=== PATIENT | female | born 1945 | race Caucasian/White ===

== ENCOUNTER → 2020-09-30 06:50 | Day surgery (SDC) | payer MEDICARE, SELFPAY ==
[2020-09-30 07:15] VITALS: BP 129/56; PULSE 75; RESP 18; TEMP 36.5; O2SAT 96
[2020-09-30 07:26] VITALS: BP 130/57; PULSE 72; RESP 18; TEMP 36.6; O2SAT 97
[2020-09-30 07:44] VITALS: BP 146/59; PULSE 67; RESP 18; TEMP 36.7
[2020-09-30 07:59] VITALS: BP 142/66; PULSE 68; RESP 18; TEMP 36.6; O2SAT 99
[2020-09-30 08:59] VITALS: BP 165/72; PULSE 68; RESP 18; TEMP 36.7; O2SAT 18
[2020-09-30] MEDS: sodium chloride 0.9% 100 mL Bag IV (09:11)
== END ==
PROVIDERS: PCP Family Medicine; Visit Provider Family Medicine
DX: D50.9 Iron deficiency anemia, unspecified (principal)
CPT/HCPCS: 36415; 36430; 86850; 86900; 86920; P9016

== ENCOUNTER 2022-07-01 09:12 | Inpatient (IN) | payer MEDICARE, SELFPAY ==
[2022-07-01] VITALS (49 sets, daily range): BP systolic 149–210; BP diastolic 54–98; PULSE 75–88; RESP 16–21; TEMP 36.7–36.9; O2SAT 86–100; BMI 19.2; BMI 19.0
--- NOTE | 2022-07-01 10:55 | XRR_ITS ---
PROCEDURE INFORMATION: Exam: XR Left Tibia and Fibula Exam date and time: 07/01/2022 11:12 AM Age: 76 years old Clinical indication: Injury or trauma; Fall; Blunt trauma; Lower leg; Left; Additional info: Leg pain after fall TECHNIQUE: Imaging protocol: Radiologic exam of the Left tibia and fibula. Views: 2 views. COMPARISON: No relevant prior studies available. FINDINGS: Bones/joints: Normal. Soft tissues: Normal. XR/XR tibia fibula LT 2V [id number] IMPRESSION: No acute findings.
--- NOTE | 2022-07-01 10:55 | XRR_ITS ---
PROCEDURE INFORMATION: Exam: XR Left Knee Exam date and time: 07/01/2022 11:12 AM Age: 76 years old Clinical indication: Injury or trauma; Fall; Blunt trauma; Knee; Left; Additional info: Knee pain after fall TECHNIQUE: Imaging protocol: Radiologic exam of the Left knee. Views: 3 views. COMPARISON: No relevant prior studies available. FINDINGS: Bones/joints: Normal. Soft tissues: Normal. XR/XR knee LT 3V* [id number] IMPRESSION: No acute findings.
--- NOTE | 2022-07-01 10:55 | ED_ITS ---
Documented by User: TAYLOR Ernst-Melissa 07/01/22 16:54 HPI - Fall General: Chief Complaint: Fall Stated Complaint: fall, problems with both legs Time Seen by Provider: 07/01/22 09:28 History of Present Illness: Patient is in today for left leg pain. She re ports that on Tuesday night she fell on the ice and her left leg has hurt her ever since then. She does complain of pain in the hip and states that her left leg may be a little bit shorter. She reports of pain from the knee down. She states that when she fell she did not hit her head she did not have a loss of consciousness. She has been walking since the fall but is really in a lot of pain. She does report that she has chronic back pain issues and is on hydrocodone and hydromorphone chronically. She states that her last dose was at 8:00 this morning and she is due for another dose. She reports that her pain is significant when she is being moved around but when she is resting still it is bearable. Associated symptoms-after fall: Denies abdominal pain, chest pain, headache(s) or lightheadedness Review of Systems Const: Denies: fever(s), chills or body aches Card: Denies: chest pain, palpitations, irregular heart rhythm, lightheadedness or syncope Resp: Denies: dyspnea, productive cough or non-productive cough GI: Denies: abdominal pain, nausea or vomiting : Reports: dysuria (Reports some burning with urination recently) and other (History of a chronic UTI from previous kidney surgery.); Denies: flank pain, difficulty voiding, urinary frequency, urinary urgency or urinary hesitancy Musc: Reports: extremity pain and joint pain Neuro: Denies: headache(s), numbness in extremities or weakness in extremities PFSH ED PFSH: Medical History (Updated 07/05/22 @ 00:00 by LAST Paige) Closed subcapital fracture of left femur Dehydration Depression Displaced fracture of neck of left femur Hypertension Hypokalemia Hypomagnesemia Lower back pain Protein calorie malnutrition Surgical History (Updated 07/08/22 @ 11:15 by Navi Butler PA-C) No pertinent past surgical history Status post hip hemiarthroplasty Family History (Updated 07/01/22 @ 18:58 by Jennifer Linn MD) Denies family history of CAD (coronary artery disease) Physical Exam Const: OTHER: Patient is a frail-appearing female. Alert and oriented x3. Neck/C-Spine: COMMON NORMALS: no JVD Resp: COMMON NORMALS: normal respiratory effort, No use of accessory muscles and clear to auscultation bilaterally AUSCULTATION: clear to auscultation bilaterally Cardio: COMMON NORMALS: no JVD, regular rate, regular rhythm, S1 normal heart sound present and S2 normal heart sound present RATE: regular rate RHYTHM: regular rhythm HEART SOUNDS: S1 normal heart sound present and S2 normal heart sound present GI: COMMON NORMALS: Normal to inspection, nondistended, normoactive bowel sounds present, Soft to palpation and non-tender PALPATION: Yes Soft to palpation Extremity: NARRATIVE EXTREMITY EXAM: Tenderness to palpation left lateral and posterior hip. It is difficult to get a full assessment of shortening as the patient is having to position herself for pain with 1 leg up. CSM within normal limits to distal left leg. Course Vital Signs: Vital signs: Vital Signs Temperature 97.6 F 07/04/22 14:03 Pulse Rate 77 07/04/22 14:03 Respiratory Rate 18 07/04/22 14:03 Blood Pressure 155/76 07/04/22 14:03 Pulse Oximetry 97 07/04/22 14:03 Oxygen Delivery Me thod 07/04/22 08:40 MDM - Fall Medical Decision Making Differentials include hip fracture, contusion X-ray hip shows mildly displaced impacted left subcapital femoral neck fracture Spoke with Dr. Felton about patient and he agrees to assume care of the patient. Patient normally takes hydromorphone and hydrocodone at home. She states that she is due for a dose as she has been here and not been able to take her home meds. Hydrocodone 1 tab ordered now. Paged orthopedics?[id number] Fernandes. He advised that he will consult. Admit hospitalist and he will consult for possible surgery tomorrow. Lab Data 07/01/22 12:18 07/01/22 12:18 Radiology Impressions Hip/Pelvis X-Ray 07/01/22 10:55 IMPRESSION: Mildly displaced impacted left subcapital femoral neck fracture. Knee X-Ray 07/01/22 10:55 IMPRESSION: No acute findings. Tibia/Fibula X-Ray 07/01/22 10:55 IMPRESSION: No acute findings. Laboratory Results WBC 10.0 10^3/uL (4.0-10.0) 07/01/22 12:18 RBC 3.41 10^6/uL (4.1-5.3) L 07/01/22 12:18 Hgb 11.2 g/dL (11.5-15.3) L 07/01/22 12:18 Hct 33.5 % (37.0-47.0) L 07/01/22 12:18 MCV 98.2 fl (81-99) 07/01/22 12:18 MCH 32.8 pg (28.0-34.0) 07/01/22 12:18 MCHC 33.4 g/dL (30.0-36.0) 07/01/22 12:18 RDW 12.4 % (12.1-15.1) 07/01/22 12:18 Plt Count 311 10^3/cmm (130-400) 07/01/22 12:18 MPV 9.6 fL (7.4-10.4) 07/01/22 12:18 Neut % (Auto) 74.6 % 07/01/22 12:18 Lymph % (Auto) 10.4 % 07/01/22 12:18 [place] % (Auto) 13.9 % 07/01/22 12:18 Eos % (Auto) 0.6 % 07/01/22 12:18 Baso % (Auto) 0.1 % 07/01/22 12:18 Neut # (Auto) 7.43 10^3/uL (1.8-7.7) 07/01/22 12:18 Lymph # (Auto) 1.0 10^3/uL (0.8-4.8) 07/01/22 12:18 [place] # (Auto) 1.4 10^3/uL (0.2-0.9) H 07/01/22 12:18 Eos # (Auto) 0.1 10^3/uL (0.0-0.8) 07/01/22 12:18 Baso # (Auto) 0.0 10^3/uL (0.0-0.1) 07/01/22 12:18 Nucleated RBC % (auto) 0 % 07/01/22 12:18 Nucleated RBCs # 0.0 /100WBC 07/01/22 12:18 PT 13.90 SECONDS (12.1-14.9) 07/01/22 12:18 INR 1.04 (0.8-1.2) 07/01/22 12:18 APTT 37.6 SECONDS (23.9-36.7) H 07/01/22 12:18 D-Dimer 1.62 ug/mIFEU (0-0.59) H 07/01/22 12:18 Sodium 134 mmol/L (136-145) L 07/01/22 12:18 Potassium 4.0 mmol/L (3.5-5.1) 07/01/22 12:18 Chloride 96 mmol/L (98-107) L 07/01/22 12:18 Carbon Dioxide 24 mmol/L (22-29) 07/01/22 12:18 Anion Gap 18.0 (5-19) 07/01/22 12:18 BUN 10 mg/dL (8-23) 07/01/22 12:18 Creatinine 0.6 mg/dL (0.5-0.9) 07/01/22 12:18 GFR Calculation Not Reportable 07/01/22 12:18 Glucose 101 mg/dL (65-115) 07/01/22 12:18 Calculated Osmolality 277 mOsm/kg (285-295) L 07/01/22 12:18 Calcium 9.6 mg/dL (8.5-10.5) 07/01/22 12:18 Total Bilirubin 0.4 mg/dL (0.15-1.2) 07/01/22 12:18 AST 24 U/L (0-32) 07/01/22 12:18 ALT 18 U/L (0-33) 07/01/22 12:18 Alkaline Phosphatase 110 U/L (35-105) H 07/01/22 12:18 Total Protein 6.5 g/dL (6.6-8.7) L 07/01/22 12:18 Albumin 3.5 g/dL (3.5-5.2) 07/01/22 12:18 Globulin 3.0 g/dL (1.3-4.6) 07/01/22 12:18 Vitamin B12 185 pg/mL (232-1245) L 07/01/22 12:18 Urine Color Yellow (Yellow) 07/01/22 14:00 Urine Appearance Clear (CLEAR) 07/01/22 14:00 Urine pH 6 (5-7) 07/01/22 14:00 Ur Specific Saxis 1.010 (1.005-1.030) 07/01/22 14:00 Urine Protein Neg (Negative) 07/01/22 14:00 Urine Glucose (UA) Norm (Normal) 07/01/22 14:00 Urine Ketones Negative (Negative) 07/01/22 14:00 Urine Blood 2+ (Negative) H 07/01/22 14:00 Urine Nitrate Negative (Negative) 07/01/22 14:00 Urine Bilirubin Neg (Negative) 07/01/22 14:00 Urine Urobilinogen Neg mg/dL (Negative) 07/01/22 14:00 Ur Leukocyte Esterase Negative (Negative) 07/01/22 14:00 Urine RBC 0-4 /hpf (0-2) H 07/01/22 14:00 Urine WBC None /hpf (0-5) 07/01/22 14:00 Ur Squamous Epith Cells None /hpf (0-5) 07/01/22 14:00 Amorphous Sediment Not Reportable 07/01/22 14:00 Urine Bacteria None /hpf (NONE) 07/01/22 14:00 Discharge Plan Discharge Patient Disposition: Admitted As Inpatient Admit Provider: Jennifer Linn Clinical Impression: Closed subcapital fracture of left femur Condition: Stable Discharge Activity: Limit activity as instructed Coding Level of Care Code ED Director Software Quality Assurance for g Fwd Documented by User: Rodrick Felton MD 07/13/22 01:03 HPI - Fall General: Chief Complaint: Fall Stated Complaint: fall, problems with both legs Time Seen by Provider: 07/01/22 09:28 PFSH ED PFSH: Medical History (Updated 07/05/22 @ 00:00 by LAST Paige) Closed subcapital fracture of left femur Dehydration Depression Displaced fracture of neck of left femur Hypertension Hypokalemia Hypomagnesemia Lower back pain Protein calorie malnutrition Surgical History (Updated 07/08/22 @ 11:15 by Navi Butler PA-C) No pertinent past surgical history Status post hip hemiarthroplasty Family History (Updated 07/01/22 @ 18:58 by Jennifer Linn MD) Denies family history of CAD (coronary artery disease) Course Vital Signs: Vital signs: Vital Signs Temperature 97.6 F 07/04/22 14:03 Pulse Rate 77 07/04/22 14:03 Respiratory Rate 18 07/04/22 14:03 Blood Pressure 155/76 07/04/22 14:03 Pulse Oximetry 97 07/04/22 14:03 Oxygen Delivery Me thod 07/04/22 08:40 MDM - Fall Medical Decision Making Differentials include hip fracture, contusion X-ray hip shows mildly displaced impacted left subcapital femoral neck fracture Spoke with Dr. Felton about patient and he agrees to assume care of the patient. Patient normally takes hydromorphone and hydrocodone at home. She states that she is due for a dose as she has been here and not been able to take her home meds. Hydrocodone 1 tab ordered now. Paged orthopedics?[id number] Fernandes. He advised that he will consult. Admit hospitalist and he will consult for possible surgery tomorrow. I discussed this case with MARY Ernst. I reviewed documentation and imaging. Rodrick Felton MD Emergency Medicine Lab Data 07/01/22 12:18 07/01/22 12:18 Radiology Impressions Hip/Pelvis X-Ray 07/01/22 10:55 IMPRESSION: Mildly displaced impacted left subcapital femoral neck fracture. Knee X-Ray 07/01/22 10:55 IMPRESSION: No acute findings. Tibia/Fibula X-Ray 07/01/22 10:55 IMPRESSION: No acute findings. Laboratory Results WBC 10.0 10^3/uL (4.0-10.0) 07/01/22 12:18 RBC 3.41 10^6/uL (4.1-5.3) L 07/01/22 12:18 Hgb 11.2 g/dL (11.5-15.3) L 07/01/22 12:18 Hct 33.5 % (37.0-47.0) L 07/01/22 12:18 MCV 98.2 fl (81-99) 07/01/22 12:18 MCH 32.8 pg (28.0-34.0) 07/01/22 12:18 MCHC 33.4 g/dL (30.0-36.0) 07/01/22 12:18 RDW 12.4 % (12.1-15.1) 07/01/22 12:18 Plt Count 311 10^3/cmm (130-400) 07/01/22 12:18 MPV 9.6 fL (7.4-10.4) 07/01/22 12:18 Neut % (Auto) 74.6 % 07/01/22 12:18 Lymph % (Auto) 10.4 % 07/01/22 12:18 [place] % (Auto) 13.9 % 07/01/22 12:18 Eos % (Auto) 0.6 % 07/01/22 12:18 Baso % (Auto) 0.1 % 07/01/22 12:18 Neut # (Auto) 7.43 10^3/uL (1.8-7.7) 07/01/22 12:18 Lymph # (Auto) 1.0 10^3/uL (0.8-4.8) 07/01/22 12:18 [place] # (Auto) 1.4 10^3/uL (0.2-0.9) H 07/01/22 12:18 Eos # (Auto) 0.1 10^3/uL (0.0-0.8) 07/01/22 12:18 Baso # (Auto) 0.0 10^3/uL (0.0-0.1) 07/01/22 12:18 Nucleated RBC % (auto) 0 % 07/01/22 12:18 Nucleated RBCs # 0.0 /100WBC 07/01/22 12:18 PT 13.90 SECONDS (12.1-14.9) 07/01/22 12:18 INR 1.04 (0.8-1.2) 07/01/22 12:18 APTT 37.6 SECONDS (23.9-36.7) H 07/01/22 12:18 D-Dimer 1.62 ug/mIFEU (0-0.59) H 07/01/22 12:18 Sodium 134 mmol/L (136-145) L 07/01/22 12:18 Potassium 4.0 mmol/L (3.5-5.1) 07/01/22 12:18 Chloride 96 mmol/L (98-107) L 07/01/22 12:18 Carbon Dioxide 24 mmol/L (22-29) 07/01/22 12:18 Anion Gap 18.0 (5-19) 07/01/22 12:18 BUN 10 mg/dL (8-23) 07/01/22 12:18 Creatinine 0.6 mg/dL (0.5-0.9) 07/01/22 12:18 GFR Calculation Not Reportable 07/01/22 12:18 Glucose 101 mg/dL (65-115) 07/01/22 12:18 Calculated Osmolality 277 mOsm/kg (285-295) L 07/01/22 12:18 Calcium 9.6 mg/dL (8.5-10.5) 07/01/22 12:18 Total Bilirubin 0.4 mg/dL (0.15-1.2) 07/01/22 12:18 AST 24 U/L (0-32) 07/01/22 12:18 ALT 18 U/L (0-33) 07/01/22 12:18 Alkaline Phosphatase 110 U/L (35-105) H 07/01/22 12:18 Total Protein 6.5 g/dL (6.6-8.7) L 07/01/22 12:18 Albumin 3.5 g/dL (3.5-5.2) 07/01/22 12:18 Globulin 3.0 g/dL (1.3-4.6) 07/01/22 12:18 Vitamin B12 185 pg/mL (232-1245) L 07/01/22 12:18 Urine Color Yellow (Yellow) 07/01/22 14:00 Urine Appearance Clear (CLEAR) 07/01/22 14:00 Urine pH 6 (5-7) 07/01/22 14:00 Ur Specific Saxis 1.010 (1.005-1.030) 07/01/22 14:00 Urine Protein Neg (Negative) 07/01/22 14:00 Urine Glucose (UA) Norm (Normal) 07/01/22 14:00 Urine Ketones Negative (Negative) 07/01/22 14:00 Urine Blood 2+ (Negative) H 07/01/22 14:00 Urine Nitrate Negative (Negative) 07/01/22 14:00 Urine Bilirubin Neg (Negative) 07/01/22 14:00 Urine Urobilinogen Neg mg/dL (Negative) 07/01/22 14:00 Ur Leukocyte Esterase Negative (Negative) 07/01/22 14:00 Urine RBC 0-4 /hpf (0-2) H 07/01/22 14:00 Urine WBC None /hpf (0-5) 07/01/22 14:00 Ur Squamous Epith Cells None /hpf (0-5) 07/01/22 14:00 Amorphous Sediment Not Reportable 07/01/22 14:00 Urine Bacteria None /hpf (NONE) 07/01/22 14:00 Discharge Plan Discharge Patient Disposition: Admitted As Inpatient Admit Provider: Jennifer Linn Clinical Impression: Closed subcapital fracture of left femur Condition: Stable Discharge Activity: Limit activity as instructed Coding Level of Care Code ED Director Software Quality Assurance for Pablo Aviles
--- NOTE | 2022-07-01 10:55 | XRR_ITS ---
PROCEDURE INFORMATION: Exam: XR Left Hip Exam date and time: 07/01/2022 11:12 AM Age: 76 years old Clinical indication: Injury or trauma; Fall; Blunt trauma (contusions or hematomas); Left; Hip; Additional info: Leg pain after fall TECHNIQUE: Imaging protocol: Radiologic exam of the Left hip. Views: 2 or 3 views hip with pelvis when performed. COMPARISON: No relevant prior studies available. FINDINGS: Bones/joints: Mildly displaced subcapital femoral neck fracture on the left. Mild varus impaction at the fracture site. Mild varus angulation. No visible pelvic fracture. The right proximal femur is unremarkable. Soft tissues: Unremarkable. Other findings: Metallic density structures project over the lower abdomen, external to the patient. XR/XR hip LT 2-3V wo/w pel* [id number] IMPRESSION: Mildly displaced impacted left subcapital femoral neck fracture.
[2022-07-01 12:29] LABS: Basophils % 0.1 %; Eosinophils # 0.1 10^3/uL (0.0-0.8); Eosinophils % 0.6 %; Hematocrit 33.5 % (37.0-47.0); Hemoglobin 11.2 g/dL (11.5-15.3); Lymphocytes % 10.4 %; Mean Corpuscular HGB Conc 33.4 g/dL (30.0-36.0); Mean Corpuscular Hemoglobin 32.8 pg (28.0-34.0); Mean Corpuscular Volume 98.2 fl (81-99); Mean Platelet Volume 9.6 fL (7.4-10.4); Monocytes # 1.4 10^3/uL (0.2-0.9); Monocytes % 13.9 %; Neutrophils # 7.43 10^3/uL (1.8-7.7); Neutrophils % 74.6 %; Nucleated Red Blood Cells % 0 %; Platelet Count 311 10^3/cmm (130-400); Red Blood Count 3.41 10^6/uL (4.1-5.3); Red Cell Distribution Width 12.4 % (12.1-15.1)
[2022-07-01 12:41] LABS: INR 1.04 (0.8-1.2)
[2022-07-01 12:42] LABS: Partial Thromboplastin Time 37.6 SECONDS (23.9-36.7)
[2022-07-01 12:47] LABS: Alanine Aminotransferase 18 U/L (0-33); Albumin Level 3.5 g/dL (3.5-5.2); Alkaline Phosphatase 110 U/L (35-105); Aspartate Amino Transferase 24 U/L (0-32); Blood Urea Nitrogen 10 mg/dL (8-23); Calcium 9.6 mg/dL (8.5-10.5); Carbon Dioxide 24 mmol/L (22-29); Chloride 96 mmol/L (98-107); Glucose 101 mg/dL (65-115); Osmolality Calculated 277 mOsm/kg (285-295); Sodium 134 mmol/L (136-145); Total Bilirubin 0.4 mg/dL (0.15-1.2); Total Protein 6.5 g/dL (6.6-8.7)
[2022-07-01] MEDS: HYDROcodone-acetaminophen 10-325 mg Tablet 1 TAB PO ×3 (12:54→22:13)
--- NOTE | 2022-07-01 14:09 | PC.NURSE ---
Report given to ronit LOMAX
[2022-07-01 14:46] LABS: Urine Appearance Clear (CLEAR); Urine Color Yellow (Yellow); pH Urine 6 (5-7)
[2022-07-01 14:47] LABS: Add Urine Culture? No; Add Urine Microscopic? YES; Bilirubin Urine Neg (Negative); Blood Urine 2+ (Negative); Glucose Urine UA Norm (Normal); Ketones Urine Negative (Negative); Leukocyte Esterase Urine Negative (Negative); Nitrate Urine Negative (Negative); Protein Urine Neg (Negative); RBC Urine 0-4 /hpf (0-2); Urobilinogen Urine Neg (Negative)
--- NOTE | 2022-07-01 14:47 | PM.HP ---
Providers/Chief Complaint Admitting Physician: Jennifer Linn MD Primary Care Provider: Abdiel Melendez MD Chief Complaint: fall, problems with both legs History of Present Illness Betina Flores is a 76 year old female who fell on last Tuesday night presented with chief complaint of worsening of left-sided hip pain. Patient is stating that she slipped on the black ice on Tuesday last week, she has been tolerating her pain at home, today she present to the hospital when it got worse and out of control, she has not noticed any syncopal event, chest pain, nausea, vomiting or diarrhea. She is denying history of coronary disease. She lives with her family, independent for daily activities. Orthopedics consulted in the ER for left-sided femoral neck fracture she has been diagnosed with low vitamin B12 Review of Systems Const: Denies: fever(s) Eyes: Denies: change in vision ENMT: Denies: throat pain Card: Denies: chest pain Resp: Denies: dyspnea GI: Denies: abdominal pain : Denies: flank pain Musc: Reports: neck pain, back pain and extremity pain Skin/Breast: Denies: rash Neuro: Denies: headache(s) Psych: Reports: anxiety Endo: Denies: polyuria Bhanu/Lymph: Denies: easy bruising All/Imm: Denies: urticaria Medications/Allergies Home Medications Medication Instructions Recorded Confirmed Last Taken Type atorvastatin 10 mg tablet 10 mg PO BEDTIME 09/30/20 07/01/22 06/30/22 History brimonidine 0.2 % eye drops 1 drp ophthalmic (eye) BID 09/30/20 07/01/22 09/29/20 History bupropion HCl 300 mg 24 hr tablet, 300 mg PO BID 09/30/20 07/01/22 06/30/22 History extended release carisoprodol 350 mg tablet 350 mg PO Q6H 09/30/20 07/01/22 07/01/22 History fluoxetine 40 mg capsule 40 mg PO QAM 09/30/20 07/01/22 06/30/22 History hydrocodone 10 mg-acetaminophen 1 - 2 tab PO Q4H PRN Pain 09/30/20 07/01/22 07/01/22 08:00 History 325 mg tablet 2 tabs hydromorphone 2 mg tablet 1 - 2 mg PO Q4H PRN Pain 09/30/20 07/01/22 09/29/20 History acetaminophen 650 mg 650 mg PO BID PRN Pain 07/01/22 07/01/22 Unknown History tablet,extended release diphenhydramine HCl 50 mg capsule 100 mg PO BEDTIME 07/01/22 07/01/22 Unknown History ([employer] SleepGels) gabapentin 100 mg capsule 100 mg PO Q6H 07/01/22 07/01/22 06/30/22 History Allergies Allergy/AdvReac Type Severity Reaction Status Date / Time No Known Allergies Allergy Verified 07/01/22 11:59 PFSH Acute PFSH: Medical History (Updated 07/01/22 @ 18:58 by Jennifer Linn MD) Depression Lower back pain Surgical History (Updated 07/01/22 @ 18:58 by Jennifer Linn MD) No pertinent past surgical history Family History (Updated 07/01/22 @ 18:58 by Jennifer Linn MD) Denies family history of CAD (coronary artery disease) Vitals/I&O/Wt Last Vital Signs Temp 98.1 F 07/01/22 09:28 Pulse 86 07/01/22 09:28 Resp 18 07/01/22 09:28 BP 204/54 07/01/22 14:05 Pulse Ox 100 07/01/22 14:05 O2 Del Method 07/01/22 09:28 Weight last 48 hrs Weight 47.627 kg Physical Exam Narrative: Frail female Currently in distress because of pain S1, S2 Sinus tachycardia Hypertensive due to pain Abdomen soft Nonfocal neuro exam Doing well on room air Appears stated age Dehydrated Urinary Catheter Management: Mcmullen: Cath Placed During This Visit: yes Urinary Catheter Date of Insertion: 07/01/22 Urinary Catheter Time of Insertion: 14:01 Data 07/01/22 12:18 07/01/22 12:18 A&P Assessment and plan (1) Closed subcapital fracture of left femur: (2) Displaced fracture of neck of left femur: (3) No pertinent past surgical history: Plan Left hip fracture Femoral neck fracture Concern for avascular necrosis Surgery tomorrow Orthopedics consulted We will keep her n.p.o. after midnight Start IV fluids Place Mcmullen catheter I will give her Dilaudid for analgesia Continue gabapentin as well Hypertension is most likely related to uncontrolled pain N.p.o. after midnight Full code DVT prophylaxis: SCDs She will need rehab after surgery Attestations Medical Necessity Statement*: Anticipating more than 2 midnight Coding Level of Care Code 99494 Diagnoses Closed subcapital fracture of left femur S72.012A Displaced fracture of neck of left femur S72.002A No pertinent past surgical history Z78.9
[2022-07-01 15:06] LABS: D Dimer 1.62 ug/mIFEU (0-0.59)
[2022-07-01] MEDS: acetaminophen 500 mg Tablet PO (15:37)
[2022-07-01] MEDS: sodium chloride 0.9% 1,000 ML 75 ML IV (15:44)
[2022-07-01 16:13] LABS: Vitamin B12 185 pg/mL (232-1245)
--- NOTE | 2022-07-01 16:51 | PM.CONSULT ---
Providers/Reason For Consult Consulting Physician/Specialty*: Orthopedics Reason for Consult*: Left hip pain Attending Physician: Jennifer Linn MD Primary Care Provider: Abdiel Melendez MD History of Present Illness History of Present Illness Betina Flores is a 76 year old female who was evaluated in the emergency room on 07/01/2022 with family present. Patient was complaining of left hip pain following a fall after she slipped on the ice. Pain has been localized to the left hip is been constant sharp stabbing in nature and the movement has made it much worse. She denies any neck or back pain she describes the pain as 8 out of 10 on the pain scale and localized to the left hip. There is obvious deformity about the left lower extremity. She denies any neck or back pain. Denies any loss of consciousness in the fall. Any attempts to move the left leg is made it much worse. Review of Systems Const: Denies: fever(s), chills or body aches Card: Denies: chest pain, palpitations, irregular heart rhythm, lightheadedness or syncope Resp: Denies: dyspnea, productive cough or non-productive cough GI: Denies: abdominal pain, nausea or vomiting : Reports: dysuria (Reports some burning with urination recently) and other (History of a chronic UTI from previous kidney surgery.); Denies: flank pain, difficulty voiding, urinary frequency, urinary urgency or urinary hesitancy Musc: Reports: extremity pain and joint pain Neuro: Denies: headache(s), numbness in extremities or weakness in extremities Medications/Allergies Home Medications Medication Instructions Recorded Confirmed Last Taken Type atorvastatin 10 mg tablet 10 mg PO BEDTIME 09/30/20 07/01/22 06/30/22 History brimonidine 0.2 % eye drops 1 drp ophthalmic (eye) BID 09/30/20 07/01/22 09/29/20 History bupropion HCl 300 mg 24 hr tablet, 300 mg PO BID 09/30/20 07/01/22 06/30/22 History extended release carisoprodol 350 mg tablet 350 mg PO Q6H 09/30/20 07/01/22 07/01/22 History fluoxetine 40 mg capsule 40 mg PO QAM 09/30/20 07/01/22 06/30/22 History hydrocodone 10 mg-acetaminophen 1 - 2 tab PO Q4H PRN Pain 09/30/20 07/01/22 07/01/22 08:00 History 325 mg tablet 2 tabs hydromorphone 2 mg tablet 1 - 2 mg PO Q4H PRN Pain 09/30/20 07/01/22 09/29/20 History acetaminophen 650 mg 650 mg PO BID PRN Pain 07/01/22 07/01/22 Unknown History tablet,extended release diphenhydramine HCl 50 mg capsule 100 mg PO BEDTIME 07/01/22 07/01/22 Unknown History ([employer] SleepGels) gabapentin 100 mg capsule 100 mg PO Q6H 07/01/22 07/01/22 06/30/22 History Allergies Allergy/AdvReac Type Severity Reaction Status Date / Time No Known Allergies Allergy Verified 07/01/22 11:59 Current Medications Generic Name Dose Route Start Last Admin Trade Name Freq PRN Reason Stop Dose Admin Acetaminophen 500 mg 07/01/22 15:28 07/01/22 15:37 Acetaminophen 500 Mg Tablet PO 500 mg Q4H PRN Administration fever Sodium Chloride 1,000 mls @ 75 mls/hr 07/01/22 15:28 07/01/22 15:44 Sodium Chloride 0.9% IV 75 mls/hr .[id number] HENNY Administration Vitals/I&O/Wt Last Vital Signs Temp 98.1 F 07/01/22 09:28 Pulse 77 07/01/22 15:35 Resp 18 07/01/22 15:35 BP 161/87 07/01/22 15:13 Pulse Ox 97 07/01/22 15:35 O2 Del Method 07/01/22 15:44 Weight last 48 hrs Weight 104 lb Weight 104 lb Weight 105 lb Physical Exam Narrative: She is alert and orient x3 mild acute distress. Good general appearance. Palpable pain over the left hip with obvious shortening and external rotation of the left lower extremity. She has positive logroll on the left. She wiggles all digits with good sensation light touch down both lower extremities dorsalis pedis posterior tibial pulses are palpable. No palpable pain in the knee or ankle region bilaterally. Negative logroll on the right. She has no palpable pain in the lumbar thoracic or cervical spine full range of motion of both upper extremities hands warm good cap refill normal sensation light touch. HENMT: COMMON NORMALS: normocephalic HEAD & SCALP: normocephalic Resp: COMMON NORMALS: normal respiratory effort Cardio: COMMON NORMALS: regular rate and regular rhythm RATE: regular rate RHYTHM: regular rhythm GI: COMMON NORMALS: Soft to palpation and non-tender PALPATION: Yes Soft to palpation : COMMON NORMALS: Yes no CVA tenderness BLADDER/KIDNEY EXAM: Yes no CVA tenderness Back/Pelvis: COMMON NORMALS: no CVA tenderness Psych: COMMON NORMALS: mental status grossly normal and cooperative Urinary Catheter Management: Mcmullen: Cath Placed During This Visit: yes Urinary Catheter Date of Insertion: 07/01/22 Urinary Catheter Time of Insertion: 14:01 Data 07/01/22 12:18 07/01/22 12:18 A&P Assessment and plan (1) Displaced fracture of neck of left femur: Discussed with the patient and her family the treatment options and involved a left hip hemiarthroplasty. She understands the procedure she wished to proceed we will wait to medical clearance we will keep her n.p.o. after midnight. Discussed this with Dr. Moffett agrees above-stated plan. More than 50% of the time spent with the patient today involved coordination of care, counseling and discussion of conservative versus surgical treatment options. Total amount of time spent with the patient was 30 minutes. Coding Level of Care Code Acute Code for [facility] Fwd Diagnoses Displaced fracture of neck of left femur S72.002A Time Spent (min) 30
[2022-07-01] MEDS: gabapentin 100 mg Capsule PO (17:56)
[2022-07-01] MEDS: brimonidine 0.2% Op Soln 5 mL Btl 1 DROP EYE-BOTH (18:01)
[2022-07-01] MEDS: amlodipine 10 mg Tablet PO (19:31)
[2022-07-01] MEDS: HYDROmorphone 1 mg/mL INJ 1 mL 0.4 MG IVP (20:51)
--- NOTE | 2022-07-01 22:21 | PC.NURSE ---
Report called to [facility] on med-surg floor.
--- NOTE | 2022-07-01 22:39 | PC.NURSE ---
Transferred to room 261 in bed.
--- NOTE | 2022-07-01 23:56 | PC.NURSE ---
TRANSFER NOTE Pt received to room 261 from CSU via bed at 2250. Is alert and oriented. Says she fell a week ago but just came to the hospital yesterday because pain became too much to take. Has fx of L femur and is scheduled for surgery in the am. Denies pain at present and says received pain med not long ago. IV fluids infusing without difficulty. Mcmullen catheter in place. VS check was done and call light in pts reach. 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
[2022-07-02] VITALS (17 sets, daily range): BP systolic 95–192; BP diastolic 43–93; PULSE 62–89; RESP 9–21; TEMP 36.1–36.8; O2SAT 92–99
[2022-07-02] MEDS: HYDROmorphone 1 mg/mL INJ 1 mL 0.4 MG IVP ×4 (01:06→23:25)
[2022-07-02] MEDS: HYDROcodone-acetaminophen 10-325 mg Tablet 1 TAB PO ×3 (02:33→21:55)
[2022-07-02] MEDS: sodium chloride 0.9% 1,000 ML 75 ML IV ×2 (04:41→21:56)
[2022-07-02] MEDS: fluoxetine 20 mg Capsule 40 MG PO (05:14)
[2022-07-02 07:11] LABS: Basophils % 0.4 %; Eosinophils # 0.1 10^3/uL (0.0-0.8); Hematocrit 36.4 % (37.0-47.0); Hemoglobin 12.1 g/dL (11.5-15.3); Lymphocytes # 1.2 10^3/uL (0.8-4.8); Lymphocytes % 11.7 %; Mean Corpuscular HGB Conc 33.2 g/dL (30.0-36.0); Mean Corpuscular Hemoglobin 32.6 pg (28.0-34.0); Mean Corpuscular Volume 98.1 fl (81-99); Mean Platelet Volume 9.8 fL (7.4-10.4); Monocytes # 1.3 10^3/uL (0.2-0.9); Monocytes % 12.6 %; Neutrophils # 7.38 10^3/uL (1.8-7.7); Neutrophils % 73.7 %; Nucleated Red Blood Cells % 0 %; Platelet Count 356 10^3/cmm (130-400); Red Blood Count 3.71 10^6/uL (4.1-5.3); Red Cell Distribution Width 12.2 % (12.1-15.1)
[2022-07-02 07:29] LABS: Anion Gap 18.5 (5-19); Blood Urea Nitrogen 8 mg/dL (8-23); Calcium 8.7 mg/dL (8.5-10.5); Carbon Dioxide 22 mmol/L (22-29); Chloride 94 mmol/L (98-107); Glucose 89 mg/dL (65-115); Magnesium 1.6 mg/dL (1.7-2.3); Osmolality Calculated 270 mOsm/kg (285-295); Phosphorus 3.2 mg/dL (2.5-4.5); Potassium 3.5 mmol/L (3.5-5.1); Sodium 131 mmol/L (136-145)
[2022-07-02] MEDS: amlodipine 10 mg Tablet PO (08:51)
[2022-07-02] MEDS: gabapentin 100 mg Capsule PO ×2 (08:51→17:28)
--- NOTE | 2022-07-02 10:07 | PC.NURSE ---
1010 patient taked to preop holding patient in stable condition
[2022-07-02] MEDS: sodium chloride 0.9% 1,000 ML 30 ML IV (10:28)
--- NOTE | 2022-07-02 10:32 | W.PM.OPSUD ---
Surgery/Procedure H&P Update DATE OF PROCEDURE: July 02, 2022 DATE H&P PERFORMED: 07/02/22 H&P UPDATE INFORMATION: I have reviewed H&P completed within last 30 days, I have examined patient prior to procedure and No changes to prior documentation PREOP DIAGNOSIS: Displaced left femoral neck fracture PLANNED PROCEDURE: Operation Date: 07/02/22 11:45 Proposed Procedures p Hemiarthroplasty Hip(Left) - Demetrius Fernandes DO
--- NOTE | 2022-07-02 10:39 | PM.PN ---
Subjective Subjective: Patient is going for surgery around 11:30 AM as per the staff and who is at the bedside Patient is still complaining of pain Agreeable to go to rehab after surgery Patient is full code Goals of care discussed with the patient in front of her D-dimer is 1.6 She is on room air Not tachycardic Hemoglobin 12 Potassium 3.5 sodium 131 Magnesium 1.6 Vitals/I&O/Wt Last Vital Signs Temp 97.0 F L 07/02/22 10:18 Pulse 80 07/02/22 10:18 Resp 17 07/02/22 10:18 BP 159/75 07/02/22 10:18 Pulse Ox 95 07/02/22 10:18 O2 Del Method 07/02/22 10:18 07/01/22 07/02/22 07/02/22 22:59 06:59 14:59 Intake Total 120 / 120 1031.25 / 1151.25 60 / 60 Output Total 400 / 400 200 / 200 Balance 120 / 120 631.25 / 751.25 -140 / -140 Weight last 48 hrs Weight 47.174 kg Weight 47.174 kg Weight 47.627 kg Physical Exam Narrative: Patient is in pain Dehydrated Muscle mass loss S1, S2 Currently on room air at the bedside Nonfocal neuro exam No audible stridor or wheezing No signs of vascular compromise of lower extremities Skin is dehydrated and dry Urinary Catheter Management: Mcmullen: Cath Placed During This Visit: yes Reason for Continuing Indwelling Catheter: Required Immobilization for Trauma or Surgery or Anesthesia Urinary Catheter Date of Insertion: 07/01/22 Urinary Catheter Time of Insertion: 14:01 Data 07/02/22 06:12 07/02/22 06:12 A&P Assessment and plan (1) Displaced fracture of neck of left femur: (2) Closed subcapital fracture of left femur: (3) Dehydration: (4) Hypertension: (5) Hypomagnesemia: (6) Hypokalemia: (7) Protein calorie malnutrition: Plan Femoral neck fracture Patient is going for surgery today Complaining of leg pain at this point She has been given opioids We will follow-up with orthopedic Hypertension like related to uncontrolled pain Added amlodipine Reevaluate after her surgery Dehydration, continue IV fluid Low potassium and sodium noted Hypomagnesemia: Magnesium repleted Patient is frail most likely will need rehab after her surgery She is full code N.p.o. for the surgery Follow-up with blood work tomorrow morning Start DVT prophylaxis 4 hours after the procedure Mild protein calorie malnourishment, will ask dietitian to see her after surgery BMI 19 Attestations Medical Necessity Statement*: Surgery today Coding Level of Care Code 30352 Diagnoses Displaced fracture of neck of left femur S72.002A Closed subcapital fracture of left femur S72.012A Dehydration E86.0 Hypertension I10 Hypomagnesemia E83.42 Hypokalemia E87.6 Protein calorie malnutrition E46
--- NOTE | 2022-07-02 10:45 | P.ANESASSM_ITS ---
Pre-Anesthetic Assessment Height/Weight: Height 1.57 m Weight 47.174 kg Temp Pulse Resp BP Pulse Ox O2 Del Method 97.0 F L 80 17 159/75 95 07/02/22 10:18 07/02/22 10:18 07/02/22 10:18 07/02/22 10:18 07/02/22 10:18 07/02/22 10:18 Preop Diagnosis: Displaced left femoral neck fracture Operation Date: 07/02/22 11:45 Proposed Procedures p Hemiarthroplasty Hip(Left) - Demetrius Fernandes, DO Familial anesthetic complications: None Was Beta Kasie taken within 24 hours: N/A Was Clonidine taken within 24 hours: N/A Last intake: Intake Last Liquid Date 07/01/22 Last Liquid Time 23:45 Last Solid Date 07/01/22 Last Solid Time 18:00 Social Tobacco and No alcohol Exam alert, oriented x 3, clear to auscultation bilaterally and regular rate & rhythm legallly blind, NENANA Airway Mallampati: Class II Dentition: other (None) CV/HEM Hypertension GI Peptic Ulcer Disease unknown bowel surgery Neuropsych Transient Ischemic Attack Anesthetic Plan ASA status: 3 Anesthesia: Regional (specify below) (spinal) Risk of > 500 ml blood loss (7ml/kg in children): No Medications/Allergies Home Medications Medication Instructions Recorded Confirmed Last Taken Type atorvastatin 10 mg tablet 10 mg PO BEDTIME 09/30/20 07/01/22 06/30/22 History brimonidine 0.2 % eye drops 1 drp ophthalmic (eye) BID 09/30/20 07/01/22 09/29/20 History bupropion HCl 300 mg 24 hr tablet, 300 mg PO BID 09/30/20 07/01/22 06/30/22 History extended release carisoprodol 350 mg tablet 350 mg PO Q6H 09/30/20 07/01/22 07/01/22 History fluoxetine 40 mg capsule 40 mg PO QAM 09/30/20 07/01/22 06/30/22 History hydrocodone 10 mg-acetaminophen 1 - 2 tab PO Q4H PRN Pain 09/30/20 07/01/22 07/01/22 08:00 History 325 mg tablet 2 tabs hydromorphone 2 mg tablet 1 - 2 mg PO Q4H PRN Pain 09/30/20 07/01/22 09/29/20 History acetaminophen 650 mg 650 mg PO BID PRN Pain 07/01/22 07/01/22 Unknown History tablet,extended release diphenhydramine HCl 50 mg capsule 100 mg PO BEDTIME 07/01/22 07/01/22 Unknown History ([employer]) gabapentin 100 mg capsule 100 mg PO Q6H 07/01/22 07/01/22 06/30/22 History Allergies Allergy/AdvReac Type Severity Reaction Status Date / Time No Known Allergies Allergy Verified 07/01/22 11:59 Current Medications Generic Name Dose Route Start Last Admin Trade Name Freq PRN Reason Stop Dose Admin Acetaminophen 500 mg 07/01/22 15:28 07/01/22 15:37 Acetaminophen 500 Mg Tablet PO 500 mg Q4H PRN Administration fever Hydrocodone Bitart/Acetaminophen 1 tab 07/01/22 15:28 07/02/22 08:50 Hydrocodone-Acetaminophen 10-325 Mg Tablet PO 1 tab Q4H PRN Administration Pain Amlodipine Besylate 10 mg 07/01/22 18:25 07/02/22 08:51 Amlodipine 10 Mg Tablet PO 10 mg DAILY HENNY Administration Brimonidine Tartrate 1 drop 07/01/22 18:00 07/01/22 18:01 Brimonidine 0.2% Op Soln 5 Ml Btl EYE-BOTH 1 drop BID HENNY Administration Fluoxetine HCl 40 mg 07/02/22 06:00 07/02/22 05:14 Fluoxetine 20 Mg Capsule PO 40 mg QAM HENNY Administration Gabapentin 100 mg 07/01/22 18:00 07/02/22 08:51 Gabapentin 100 Mg Capsule PO 100 mg BID HENNY Administration Hydromorphone HCl 0.4 mg 07/01/22 18:58 07/02/22 09:57 Hydromorphone 1 Mg/Ml Inj 1 Ml IVP 0.4 mg Q4H PRN Administration pain Sodium Chloride 1,000 mls @ 75 mls/hr 07/01/22 15:28 07/02/22 04:41 Sodium Chloride 0.9% IV 75 mls/hr .[id number] HENNY Administration Sodium Chloride 1,000 mls @ 30 mls/hr 07/02/22 10:15 07/02/22 10:28 Sodium Chloride 0.9% IV 07/03/22 10:14 30 mls/hr .Q24H HENNY Administration PFSH Anesthesia Medical History (Updated 07/02/22 @ 10:44 by Jennifer Linn MD) Depression Lower back pain Surgical History (Updated 07/01/22 @ 18:58 by Jennifer Linn MD) No pertinent past surgical history Family History (Updated 07/01/22 @ 18:58 by Jennifer Linn MD) Denies family history of CAD (coronary artery disease) Data Anesthesia 07/02/22 06:12 07/02/22 06:12 Short CBC 07/01/22 07/02/22 Range/Units 12:18 06:12 WBC 10.0 10.0 (4.0-10.0) 10^3/uL Hgb 11.2 L 12.1 (11.5-15.3) g/dL Hct 33.5 L 36.4 L (37.0-47.0) % MCV 98.2 98.1 (81-99) fl Plt Count 311 356 (130-400) 10^3/cmm Neut % (Auto) 74.6 73.7 % Neut # (Auto) 7.43 7.38 (1.8-7.7) 10^3/uL BMP 07/01/22 07/02/22 12:18 06:12 Sodium 134 L 131 L Potassium 4.0 3.5 Chloride 96 L 94 L Carbon Dioxide 24 22 BUN 10 8 Creatinine 0.6 0.5 Glucose 101 89 Calcium 9.6 8.7 Liver Function 07/01/22 Range/Units 12:18 Total Bilirubin 0.4 (0.15-1.2) mg/dL AST 24 (0-32) U/L ALT 18 (0-33) U/L Alkaline Phosphatase 110 H (35-105) U/L Albumin 3.5 (3.5-5.2) g/dL Urine 07/01/22 Range/Units 14:00 Urine Color Yellow (Yellow) Urine Appearance Clear (CLEAR) Urine pH 6 (5-7) Ur Specific [place] 1.010 (1.005-1.030) Urine Protein Neg (Negative) Urine Glucose (UA) Norm (Normal) Urine Ketones Negative (Negative) Urine Nitrate Negative (Negative) Urine Bilirubin Neg (Negative) Ur Leukocyte Esterase Negative (Negative) Urine RBC 0-4 H (0-2) /hpf Urine WBC None (0-5) /hpf Coags 07/01/22 07/01/22 12:18 12:18 PT 13.90 INR 1.04 APTT 37.6 H D-Dimer 1.62 H Cardiac Studies: No Data to Display
--- NOTE | 2022-07-02 11:02 | ANES.PROC ---
Anesthesia Procedures Procedure/Date: 07/02/22 Nerve Block ^: Nerve Block 1: Main Anesthesia: general anesthesia Time Out Performed: Yes Consent: requested by attending/covering physician, from patient, from other, risks and benefits reviewed and patient agrees to proceed Nerve block location: axillary (R) Anesthesia monitors applied: pulse oximetry, EKG, BP cuff and oxygen Nerve block position: supine Anesthetic Used: ropivicaine 0.5% (30 ml) and with decadron (4 mg) Ultrasound used to: recognize landmarks and visualize and ID brachial plexus Nerve Stimulator Used?: No Interscalene/Femoral BLK: 2 stimuplex 22 g needle used for position and inplane approach, visualize local anesthetic spread and no vascular puncture identified Injection: neg aspiration of heme Patient Tolerated Procedure: well and no complications Complications: none
--- NOTE | 2022-07-02 11:17 | PC.CHAP ---
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 [] Patient/Family/Request visit [] Outpatient visit [] Follow-up visit [] Physician referral [] Code/Alert [x] Routine visit [] Staff referral [] Actively dying [] Patient sleeping [x] Family support [] [] Out of room [] Palliative care [] [] Receiving care in room [] Pre-surgical visit [] Trauma [] Long length of stay [] ICU visit [] Other: Relational/Emotional Strength [x] Patient feels connected with others/family/visitors/staff [] Distress [] Loneliness/isolation [] Abandonment Spirituality of Patient [x] Person of Rosalba [] Attends Jewish of their Rosalba [x] Believes in Prayer [] Reads Bible or Anabaptism materials [] There are Spiritual issues to be addressed Soft Metals Hand Engraver Interventions [x] Prayer [] Active listening [] Non-anxious presence [] Spiritual/emotional support [] Crisis/trauma care [] Spiritual counseling [] Bereavement support [] Provided bereavement packet [x] Provided Bible/devotional materials [] Provided toy/stuffed animal, coloring book to patient or family member [] Provided Communion [] Anointing/[place] [] Salvation [x] Completed spiritual assessment [] Other: Impact on Illness or Injury [] Angry [] Fearful [] Anxious [] Often cries [] Exhaustion [] Unable to work [] Unable to attend rastafari [] Unable to walk/stand [] Unable to read [] Unable to drive [] Unable to eat/drink [] Unable to sleep [] Unable to be with family [] Patient intubated [] Other: Summary Time spent with patient 10min
[2022-07-02] MEDS: ceFAZolin 2,000 MG in sodium chloride 0.9% (plus) 50 ML 100 MG IV (11:28)
--- NOTE | 2022-07-02 12:32 | P.OP_ITS ---
Operative Report Date of procedure: July 02, 2022 Pre-op diagnosis: Preop Diagnosis Displaced left femoral neck fracture Post-op diagnosis: same Procedure done: 1. Left hip hemiarthroplasty Surgeon: Demetrius Fernandes Fertilizer Mixer: Navi Butler Fertilizer Mixer: The surgical pathologist, Navi Butler, PAC was needed for his expertise with fracture care. He was important and necessary throughout the procedure to com plete in a safe and timely manner. He assisted with patient positioning prepping and draping tissue retraction suctioning of the operative field protection of the critical structures and tissue closure Estimated blood loss (mL): 25 Procedure: 1. Left hip hemiarthroplasty patient brought to the operative suite after undergoing anesthesia was placed in lateral keep's position the left side up. Patient was then prepped and draped. All areas impingement were well-padded. Skin skin was made on the lateral side of the hip on the left side. The IT band was split modified Cabrera approach was used abductors were partially taken anteriorly capsule was taken down anteriorly the femoral neck was identified from neck cut was cut approximately 1 fingerbreadth above the lesser trochanter. The femoral head was then removed. It is measured to be 43-1/2. Next tension was brought to prepping the femur. The ammonia box tender was used to help lateralize the opening and then the canal finder was used followed by lateralizer. The broaches were then used up to a size 6. It is a Cielo hip. A size 6 Magnolia stem was inserted. The -4 neck length and a 43 mm head. The hip was then reduced and was stable in all positions. Wounds were irrigated and the wound was closed in a layered fashion with 0 Vicryl FiberWire was used to close the capsule and 0 Vicryl for the IT band and splint skin was closed with 2-0 Vicryl and marion. Sterile dressings applied patient was transferred to the PACU in stable condition.
--- NOTE | 2022-07-02 13:17 | PC.NURSE ---
1315 report recieved from PACU
--- NOTE | 2022-07-02 13:27 | PC.NUTR ---
When medically appropriate, recommend consideration of Jevity 1.2 or similar product beginning with 10 mls/hr and increasing 10 mls Q8H as tolerated until a goal rate of 40 mls/hr is reached with fresh water flushes 80 mls Q4H or per MD discretion. Details in RD assessment.
--- NOTE | 2022-07-02 13:28 | PC.NURSE ---
1320 patient returned to room 261 from PACU dressing to left hip clean dry and intact, patient drowsy, oriented x3. offering no complaints of pain at this time
[2022-07-02] MEDS: magnesium sulfate premix 2 GM/50 ML PIGGYBACK IV (14:04)
--- NOTE | 2022-07-02 14:10 | ANE.PACU2 ---
Inpatient post-anesthesia follow up: Airway intact: Yes Vital signs: Temperature 97.5 F Pulse Rate 70 Respiratory Rate 16 Blood Pressure 168/74 Pulse Oximetry 94 Oxygen Delivery Me thod Room Air Oxygen Flow Rate Fraction of Inspir ed Oxygen Hydration adequate: Yes Nausea and vomiting: No Pain level: 1 Mental status: Baseline
--- NOTE | 2022-07-02 15:53 | PC.OT ---
OT Eval Held - OT evaluation held on this day secondary to late surgery. Will have second OT attempt tomorrow.
[2022-07-02] MEDS: ceFAZolin 1,000 MG in sodium chloride 0.9% (plus) 50 ML 100 MG IV (18:33)
[2022-07-02] MEDS: enoxaparin 40 mg/0.4 mL Syringe SUBCUT (23:29)
[2022-07-03] VITALS (10 sets, daily range): BP systolic 132–187; BP diastolic 65–83; PULSE 65–84; RESP 16–20; TEMP 36.4–36.9; O2SAT 95–97
[2022-07-03] MEDS: ketorolac 30 mg/mL INJ IVP (01:51)
[2022-07-03] MEDS: ceFAZolin 1,000 MG in sodium chloride 0.9% (plus) 50 ML 100 MG IV ×2 (02:39→11:28)
[2022-07-03 05:15] LABS: Basophils % 0.2 %; Eosinophils % 0.1 %; Hematocrit 32.6 % (37.0-47.0); Hemoglobin 10.8 g/dL (11.5-15.3); Lymphocytes # 0.9 10^3/uL (0.8-4.8); Lymphocytes % 8.7 %; Mean Corpuscular HGB Conc 33.1 g/dL (30.0-36.0); Mean Corpuscular Volume 99.7 fl (81-99); Mean Platelet Volume 9.7 fL (7.4-10.4); Monocytes # 1.7 10^3/uL (0.2-0.9); Monocytes % 17.3 %; Neutrophils # 7.35 10^3/uL (1.8-7.7); Neutrophils % 73.1 %; Nucleated Red Blood Cells % 0 %; Platelet Count 370 10^3/cmm (130-400); Red Blood Count 3.27 10^6/uL (4.1-5.3); Red Cell Distribution Width 12.1 % (12.1-15.1); White Blood Count 10.1 10^3/uL (4.0-10.0)
[2022-07-03 05:41] LABS: Alanine Aminotransferase 22 U/L (0-33); Alkaline Phosphatase 106 U/L (35-105); Anion Gap 16.9 (5-19); Aspartate Amino Transferase 42 U/L (0-32); Blood Urea Nitrogen 15 mg/dL (8-23); Calcium 8.1 mg/dL (8.5-10.5); Carbon Dioxide 22 mmol/L (22-29); Chloride 97 mmol/L (98-107); Globulin 2.5 g/dL (1.3-4.6); Glucose 96 mg/dL (65-115); Osmolality Calculated 275 mOsm/kg (285-295); Potassium 3.9 mmol/L (3.5-5.1); Sodium 132 mmol/L (136-145); Total Bilirubin 0.2 mg/dL (0.15-1.2); Total Protein 5.5 g/dL (6.6-8.7)
[2022-07-03] MEDS: fluoxetine 20 mg Capsule 40 MG PO (05:57)
[2022-07-03] MEDS: HYDROcodone-acetaminophen 10-325 mg Tablet 1 TAB PO ×3 (05:57→18:30)
[2022-07-03] MEDS: HYDROmorphone 1 mg/mL INJ 1 mL 0.4 MG IVP (07:54)
--- NOTE | 2022-07-03 09:11 | P.PN_ITS ---
Subjective Subjective: POD 1 Patient resting comfortably. Reports mild left hip pain. Denies any shortness of breath, chest pain, headaches Vitals/I&O/Wt Last Vital Signs Temp 97.5 F L 07/03/22 08:24 Pulse 80 07/03/22 08:24 Resp 18 07/03/22 08:24 BP 187/76 07/03/22 08:24 Pulse Ox 96 07/03/22 08:24 O2 Del Method 07/03/22 08:24 07/02/22 07/03/22 07/03/22 22:59 06:59 14:59 Intake Total 1915 / 2925 290 / 3215 Output Total 300 / 525 600 / 1125 Balance 1615 / 2400 -310 / 2090 Weight last 48 hrs Weight 104 lb Weight 104 lb Weight 105 lb Physical Exam Narrative: Patient is alert and orient x3 has good general appearance normal normal affect. Left hip incision is clean and dry. There is no signs of erythema or drainage no signs of infection. Good motor strength throughout both lower extremities. Fires in all motor groups. Skin is clear warm, feet are warm with good cap refill in all digits. Normal sensation to light touch. Calves are supple, no medial thigh tenderness, negative Homans' sign. No palpable edema peripherally. Urinary Catheter Management: Mcmullen: Cath Placed During This Visit: yes, but has since been removed by the nurse Reason for Continuing Indwelling Catheter: Perioperative Use in Selected S urgeries Urinary Catheter Date of Insertion: 07/01/22 Urinary Catheter Time of Insertion: 14:01 Date Urinary Catheter Removed: 07/03/22 Time Urinary Catheter Discontinued: 06:27 Data 07/03/22 04:07 07/03/22 04:07 A&P Assessment and plan (1) Status post hip hemiarthroplasty: Physical therapy to mobilize weightbearing as tolerated. Incentive spirometry for pulmonary toilet. (2) Displaced fracture of neck of left femur: Attestations Medical Necessity Statement*: Defer to medical team Coding Level of Care Code Acute Code for Chg Fwd Diagnoses Status post hip hemiarthroplasty Z96.649 Displaced fracture of neck of left femur S72.002A
[2022-07-03] MEDS: metoprolol tartrate 25 mg Tablet 12.5 MG PO ×2 (09:22→20:18)
[2022-07-03] MEDS: gabapentin 100 mg Capsule PO ×2 (09:23→18:30)
[2022-07-03] MEDS: sennosides-docusate Tablet 1 TAB PO (09:23)
[2022-07-03] MEDS: amlodipine 10 mg Tablet PO (09:23)
[2022-07-03] MEDS: lisinopril 10 mg Tablet PO (09:30)
--- NOTE | 2022-07-03 11:59 | PM.PN ---
Subjective Subjective: Patient is doing well sitting in a chair Eating breakfast No active pain Agreeable to go to rehab Vitals/I&O/Wt Last Vital Signs Temp 97.5 F L 07/03/22 08:24 Pulse 80 07/03/22 08:24 Resp 18 07/03/22 08:24 BP 187/76 07/03/22 08:24 Pulse Ox 96 07/03/22 08:24 O2 Del Method 07/03/22 08:24 07/02/22 07/03/22 07/03/22 22:59 06:59 14:59 Intake Total 1915 / 2925 290 / 3215 240 / 240 Output Total 300 / 525 600 / 1125 Balance 1615 / 2400 -310 / 2090 240 / 240 Weight last 48 hrs Weight 47.174 kg Weight 47.174 kg Physical Exam Narrative: Patient is much more awake and alert No active pain Eating breakfast Sitting in a chair Hemodynamic stable Nonfocal neuro exam S1, S2 Abdomen soft No audible stridor or wheezing Urinary Catheter Management: Mcmullen: Cath Placed During This Visit: yes, but has since been removed by the nurse Reason for Continuing Indwelling Catheter: Perioperative Use in Selected Surgeries Urinary Catheter Date of Insertion: 07/01/22 Urinary Catheter Time of Insertion: 14:01 Date Urinary Catheter Removed: 07/03/22 Time Urinary Catheter Discontinued: 06:27 Data 07/03/22 04:07 07/03/22 04:07 A&P Assessment and plan (1) Status post hip hemiarthroplasty: (2) Protein calorie malnutrition: (3) Hypokalemia: (4) Hypomagnesemia: (5) Hypertension: (6) Dehydration: (7) Displaced fracture of neck of left femur: Plan Status post left hip hemiarthroplasty Doing well Participating with PT We will reassess tomorrow how she is doing No active pain Mcmullen catheter can be removed Hemodynamic stable Full code Regular diet DVT prophylaxis on board Hypertension: Adjust antihypertensive regimen Continue PT evaluation Patient has history of lower back pain she takes hydrocodone 10 mg 2 tablets every 4 hours Attestations Medical Necessity Statement*: Awaiting placement Coding Level of Care Code 32313 Diagnoses Status post hip hemiarthroplasty Z96.649 Protein calorie malnutrition E46 Hypokalemia E87.6 Hypomagnesemia E83.42 Hypertension I10 Dehydration E86.0 Displaced fracture of neck of left femur S72.002A
[2022-07-04] MEDS: HYDROcodone-acetaminophen 10-325 mg Tablet 1 TAB PO ×2 (00:36→05:29)
[2022-07-04] MEDS: enoxaparin 40 mg/0.4 mL Syringe SUBCUT (00:36)
[2022-07-04] MEDS: fluoxetine 20 mg Capsule 40 MG PO (05:28)
[2022-07-04 05:30] VITALS: BP 178/76
[2022-07-04 05:45] VITALS: RESP 18
[2022-07-04] MEDS: morphine 4 mg/mL SDV 1 mL 2 MG IVP (05:45)
[2022-07-04] MEDS: lisinopril 10 mg Tablet PO (05:47)
[2022-07-04 06:43] VITALS: BP 181/83; PULSE 70; RESP 20; TEMP 36.9; O2SAT 96
[2022-07-04 07:57] VITALS: PULSE 80; RESP 18; O2SAT 98
[2022-07-04 08:40] VITALS: BP 155/76; PULSE 77; RESP 18; TEMP 36.4; O2SAT 97
[2022-07-04] MEDS: metoprolol tartrate 25 mg Tablet 12.5 MG PO (08:51)
[2022-07-04] MEDS: gabapentin 100 mg Capsule PO (08:51)
[2022-07-04] MEDS: amlodipine 10 mg Tablet PO (08:52)
[2022-07-04] MEDS: brimonidine 0.2% Op Soln 5 mL Btl 1 DROP EYE-BOTH (08:52)
[2022-07-04] MEDS: sennosides-docusate Tablet 1 TAB PO (08:52)
--- NOTE | 2022-07-04 09:36 | PM.PN ---
Subjective Subjective: Patient could not participate with PT yesterday I have asked PT to notify me regarding disposition plan Patient is anticipating to go home with home health services however very concerned that she has large concrete steps, there are sick steps before she enters her home I spoke with the physical therapist to update me as well Vitals/I&O/Wt Last Vital Signs Temp 97.6 F 07/04/22 08:40 Pulse 77 07/04/22 08:40 Resp 18 07/04/22 08:40 BP 155/76 07/04/22 08:40 Pulse Ox 97 07/04/22 08:40 O2 Del Method 07/04/22 08:40 07/03/22 07/04/22 07/04/22 22:59 06:59 14:59 Intake Total 360 / 1770 Balance 360 / 1770 Physical Exam Narrative: Patient sitting in a couch Currently doing well on room air Looks well-hydrated Blood pressure slightly high Nonfocal neuro exam Abdomen soft S1, S2 No active pain Urinary Catheter Management: Mcmullen: Cath Placed During This Visit: yes, but has since been removed by the nurse Reason for Continuing Indwelling Catheter: Perioperative Use in Selected Surgeries Urinary Catheter Date of Insertion: 07/01/22 Urinary Catheter Time of Insertion: 14:01 Date Urinary Catheter Removed: 07/03/22 Time Urinary Catheter Discontinued: 06:27 Data 07/03/22 04:07 07/03/22 04:07 A&P Assessment and plan (1) Status post hip hemiarthroplasty: (2) Protein calorie malnutrition: (3) Hypokalemia: (4) Hypomagnesemia: (5) Hypertension: (6) Dehydration: (7) Displaced fracture of neck of left femur: Plan Femoral neck fracture status post surgery We will follow-up with PT evaluation today Patient is concerned about entering her home because she has large 6 concrete steps Updated physical therapist Hypertension: I would like to monitor her blood pressure today on lisinopril, amlodipine, metoprolol DVT prophylaxis on board Full code Anticipating discharge today with home health services versus tomorrow Hypokalemia: Repleted Magnesium will be checked tomorrow as well She has been replenished with IV magnesium Mild protein calorie malnourishment Add Ensure Plus 3 times daily Signs of dehydration: Improving with IV fluid hydration Attestations Medical Necessity Statement*: Discharge later today versus tomorrow Coding Level of Care Code 67869 Diagnoses Status post hip hemiarthroplasty Z96.649 Protein calorie malnutrition E46 Hypokalemia E87.6 Hypomagnesemia E83.42 Hypertension I10 Dehydration E86.0 Displaced fracture of neck of left femur S72.002A
--- NOTE | 2022-07-04 09:52 | PM.PN ---
Subjective Subjective: POD 2 Patient resting comfortably. She has been up with physical therapy. She is wanting to go home. Denies any shortness of breath or chest pain. Vitals/I&O/Wt Last Vital Signs Temp 97.6 F 07/04/22 08:40 Pulse 77 07/04/22 08:40 Resp 18 07/04/22 08:40 BP 155/76 07/04/22 08:40 Pulse Ox 97 07/04/22 08:40 O2 Del Method 07/04/22 08:40 07/03/22 07/04/22 07/04/22 22:59 06:59 14:59 Intake Total 360 / 1770 Balance 360 / 1770 Physical Exam Narrative: Patient is alert and orient x3 has good general appearance normal normal affect.? Left hip incision is clean and dry. ? There is no signs of erythema or drainage no signs of infection.? Good motor strength throughout both lower extremities.? Fires in all motor groups.? Skin is clear warm, feet are warm with good cap refill in all digits.? Normal sensation to light touch.? Calves are supple,? no medial thigh tenderness, negative Homans' sign.? No palpable edema peripherally. Urinary Catheter Management: Mcmullen: Cath Placed During This Visit: yes, but has since been removed by the nurse Reason for Continuing Indwelling Catheter: Perioperative Use in Selected Surgeries Urinary Catheter Date of Insertion: 07/01/22 Urinary Catheter Time of Insertion: 14:01 Date Urinary Catheter Removed: 07/03/22 Time Urinary Catheter Discontinued: 06:27 Data 07/03/22 04:07 07/03/22 04:07 A&P Assessment and plan (1) Status post hip hemiarthroplasty: Physical therapy will continue to mobilize. Discussed with the nurse to change dressings to the left hip. Continue incentive spirometry for pulmonary toilet. We will have her follow-up in the office in 1 week's time for wound check. Okay from orthopedic standpoint for discharge to skilled next facility or home if safe medically. Attestations Medical Necessity Statement*: Defer to medical team Coding Level of Care Code Acute Code for Chg Fwd Diagnoses Status post hip hemiarthroplasty Z96.649
--- NOTE | 2022-07-04 10:31 | P.DS_ITS ---
Discharge Providers Date of Admission: 07/01/22 15:28 Date of Discharge: July 04, 2022 Attending Provider at Admission: Jennifer Linn MD Attending Provider at Discharge: Jennifer Linn MD Primary Care Provider: Abdiel Melendez MD Diagnoses at Discharge Discharge Diagnosis (1) Status post hip hemiarthroplasty: Status: Acute Reason for Visit Reason for Visit: fall, problems with both legs Hospital Course Hospital Course 76-year female who presented to the hospital after falling roughly a week ago, she was diagnosed with left femoral neck fracture status post left hip hemiarthroplasty by Dr. Fernandes on 07/02. No postoperative complications, patient did very well with physical therapist, she is motivated to return home, she does have 6 steps to enter home, she did very well with stairs when she worked with physical therapist in the hospital, she will get aspirin as DVT prophylaxis, for her hypertension added amlodipine and lisinopril. She will get senna S along opioids for her pain. She does have mild protein calorie malnourishment recommended Ensure 3 times daily with meals. Physical Exam Narrative: Patient sitting in a couch Currently doing well on room air Looks well-hydrated Blood pressure slightly high Nonfocal neuro exam Abdomen soft S1, S2 No active pain Urinary Catheter Management: Mcmullen: Cath Placed During This Visit: yes, but has since been removed by the nurse Reason for Continuing Indwelling Catheter: Perioperative Use in Selected Surgeries Urinary Catheter Date of Insertion: 07/01/22 Urinary Catheter Time of Insertion: 14:01 Date Urinary Catheter Removed: 07/03/22 Time Urinary Catheter Discontinued: 06:27 Discharge Data Studies Completed and Pending Completed Studies During Hospitalization Category Date Time Status XR hip LT 2-3V wo/w pel* [id number] Stat Exams 07/01/22 10:55 Completed XR knee LT 3V* [id number] Stat Exams 07/01/22 10:55 Completed XR tibia fibula LT 2V [id number] Stat Exams 07/01/22 10:55 Completed Pending at discharge Category Date Time Status Basic Metabolic Panel AM LABS Lab 07/05/22 04:00 Ordered Magnesium AM LABS Lab 07/05/22 04:00 Ordered Radiology Impressions Hip/Pelvis X-Ray 07/01/22 10:55 IMPRESSION: Mildly displaced impacted left subcapital femoral neck fracture. Knee X-Ray 07/01/22 10:55 IMPRESSION: No acute findings. Tibia/Fibula X-Ray 07/01/22 10:55 IMPRESSION: No acute findings. Laboratory Results WBC 10.1 10^3/uL (4.0-10.0) H 07/03/22 04:07 RBC 3.27 10^6/uL (4.1-5.3) L 07/03/22 04:07 Hgb 10.8 g/dL (11.5-15.3) L 07/03/22 04:07 Hct 32.6 % (37.0-47.0) L 07/03/22 04:07 MCV 99.7 fl (81-99) H 07/03/22 04:07 MCH 33.0 pg (28.0-34.0) 07/03/22 04:07 MCHC 33.1 g/dL (30.0-36.0) 07/03/22 04:07 RDW 12.1 % (12.1-15.1) 07/03/22 04:07 Plt Count 370 10^3/cmm (130-400) 07/03/22 04:07 MPV 9.7 fL (7.4-10.4) 07/03/22 04:07 Neut % (Auto) 73.1 % 07/03/22 04:07 Lymph % (Auto) 8.7 % 07/03/22 04:07 [place] % (Auto) 17.3 % 07/03/22 04:07 Eos % (Auto) 0.1 % 07/03/22 04:07 Baso % (Auto) 0.2 % 07/03/22 04:07 Neut # (Auto) 7.35 10^3/uL (1.8-7.7) 07/03/22 04:07 Lymph # (Auto) 0.9 10^3/uL (0.8-4.8) 07/03/22 04:07 [place] # (Auto) 1.7 10^3/uL (0.2-0.9) H 07/03/22 04:07 Eos # (Auto) 0.0 10^3/uL (0.0-0.8) 07/03/22 04:07 Baso # (Auto) 0.0 10^3/uL (0.0-0.1) 07/03/22 04:07 Nucleated RBC % (auto) 0 % 07/03/22 04:07 Nucleated RBCs # 0.0 /100WBC 07/03/22 04:07 PT 13.90 SECONDS (12.1-14.9) 07/01/22 12:18 INR 1.04 (0.8-1.2) 07/01/22 12:18 APTT 37.6 SECONDS (23.9-36.7) H 07/01/22 12:18 D-Dimer 1.62 ug/mIFEU (0-0.59) H 07/01/22 12:18 Sodium 132 mmol/L (136-145) L 07/03/22 04:07 Potassium 3.9 mmol/L (3.5-5.1) 07/03/22 04:07 Chloride 97 mmol/L (98-107) L 07/03/22 04:07 Carbon Dioxide 22 mmol/L (22-29) 07/03/22 04:07 Anion Gap 16.9 (5-19) 07/03/22 04:07 BUN 15 mg/dL (8-23) 07/03/22 04:07 Creatinine 0.6 mg/dL (0.5-0.9) 07/03/22 04:07 GFR Calculation Not Reportable 07/03/22 04:07 Glucose 96 mg/dL (65-115) 07/03/22 04:07 Calculated Osmolality 275 mOsm/kg (285-295) L 07/03/22 04:07 Calcium 8.1 mg/dL (8.5-10.5) L 07/03/22 04:07 Phosphorus 3.2 mg/dL (2.5-4.5) 07/02/22 06:12 Magnesium 1.6 mg/dL (1.7-2.3) L 07/02/22 06:12 Total Bilirubin 0.2 mg/dL (0.15-1.2) 07/03/22 04:07 AST 42 U/L (0-32) H 07/03/22 04:07 ALT 22 U/L (0-33) 07/03/22 04:07 Alkaline Phosphatase 106 U/L (35-105) H 07/03/22 04:07 Total Protein 5.5 g/dL (6.6-8.7) L 07/03/22 04:07 Albumin 3.0 g/dL (3.5-5.2) L 07/03/22 04:07 Globulin 2.5 g/dL (1.3-4.6) 07/03/22 04:07 Vitamin B12 185 pg/mL (232-1245) L 07/01/22 12:18 Urine Color Yellow (Yellow) 07/01/22 14:00 Urine Appearance Clear (CLEAR) 07/01/22 14:00 Urine pH 6 (5-7) 07/01/22 14:00 Ur Specific [place] 1.010 (1.005-1.030) 07/01/22 14:00 Urine Protein Neg (Negative) 07/01/22 14:00 Urine Glucose (UA) Norm (Normal) 07/01/22 14:00 Urine Ketones Negative (Negative) 07/01/22 14:00 Urine Blood 2+ (Negative) H 07/01/22 14:00 Urine Nitrate Negative (Negative) 07/01/22 14:00 Urine Bilirubin Neg (Negative) 07/01/22 14:00 Urine Urobilinogen Neg mg/dL (Negative) 07/01/22 14:00 Ur Leukocyte Esterase Negative (Negative) 07/01/22 14:00 Urine RBC 0-4 /hpf (0-2) H 07/01/22 14:00 Urine WBC None /hpf (0-5) 07/01/22 14:00 Ur Squamous Epith Cells None /hpf (0-5) 07/01/22 14:00 Amorphous Sediment Not Reportable 07/01/22 14:00 Urine Bacteria None /hpf (NONE) 07/01/22 14:00 Vitals Last Vital Signs Temp 97.6 F 07/04/22 08:40 Pulse 77 07/04/22 08:40 Resp 18 07/04/22 08:40 BP 155/76 07/04/22 08:40 Pulse Ox 97 07/04/22 08:40 O2 Del Method 07/04/22 08:40 Discharge Plan Discharge Patient Disposition: Home Condition: Stable Prescriptions: New oxycodone 5 mg tablet 5 mg PO DAILY PRN (Reason: pain) Qty: 7 0RF sennosides-docusate sodium [Stool Softener-Laxative] 8.6-50 mg Tablet 1 tab PO DAILY Qty: 20 0RF amlodipine 10 mg Tablet 10 mg PO DAILY Qty: 30 2RF lisinopril 10 mg Tablet 10 mg PO DAILY Qty: 30 0RF aspirin 325 mg tablet,delayed release (DR/EC) 325 mg PO DAILY Qty: 30 0RF Continued carisoprodol 350 mg tablet 350 mg PO Q6H fluoxetine 40 mg capsule 40 mg PO QAM atorvastatin 10 mg tablet 10 mg PO BEDTIME hydrocodone-acetaminophen 10-325 mg tablet 1 - 2 tab PO Q4H MDD 6 tabs PRN (Reason: Pain) hydromorphone 2 mg tablet 1 - 2 mg PO Q4H MDD 2 tabs PRN (Reason: Pain) brimonidine 0.2 % drops 1 drp ophthalmic (eye) BID bupropion HCl 300 mg tablet extended release 24 hr 300 mg PO BID Unisom SleepGels 50 mg Capsule 100 mg PO BEDTIME Tylenol Arthritis 650 mg Tablet Extended Release 650 mg PO BID PRN (Reason: Pain) gabapentin 100 mg capsule 100 mg PO Q6H Discharge Orders: Discharge Order (Routine); Ordered 07/04/22 Ordered By: Jennifer Linn Referrals: Demetrius Fernandes DO [Physician] - 2 weeks Abdiel Melendez MD [Primary Care Provider] - Discharge Activity: Limit activity as instructed Patient Instructions: Opioid Safety Activity Restrictions/Additional Instructions: You are being discharged from the hospital today during which time you have been under the care of Dr Fernandes. You had a Left hip fracture. You were treated for this injury with hemiarthroplasty. You may resume you normal diet (including any special diets as directed by your primary doctor) as well as your home medications. You should follow up with you primary doctor if you have any questions regarding medication you took prior to your stay in the hospital. You may take your pain medication as prescribed. After the first few days, take your pain medication as needed. Do not drive or drink alcohol while taking your pain medication. Your injury may increase your risk of developing a blood clot,or DVT, in your arm or leg. This could potentially dislodge and travel to your lungs and become a life threatening condition called apulmonary embolus,or PE. You have been prescribed eliquis to be taken to prevent this. Frequent movement of the legs will also help prevent this from occurring. If you develop any new or worsening cough, chestpain, bloody sputum or shortness of breath, call 911 or go to the EmergencyRoom. Always keep your surgical incision/dressing clean and dry. If you experience increasing pain at your incision site, redness, swelling, increasing discharge, foul odors, or fevers (greater than 100.4), night sweats or chills you should call the office at the above number. If you feel this is an emergency you should be evaluated in the Emergency Department of a nearby hospital. Orthopedic Patient Instructions Summary: Weight Bearing: WBAT Activity: as tolerated. Diet: regular. Wound Care: Keep dressing clean and dry. Change as needed Anticoagulation: Lovenox Pain Medication: Take only as needed. Ice, rest and elevation will be of great benefit. Please plan to follow-up [facility] Dr Fernandes in 2 weeks. You will need to call the clinic [phone] to schedule. Do not hesitate to call the office with any questions or concerns. Discharge Attestations Time Spent in Discharge Care*: less than 30 min Quality Metrics Clinical Quality Measures [ No reported AMI, CVA or VTE this stay] Coding Level of Care Code Acute Code for Chg Fwd Diagnoses Status post hip hemiarthroplasty Z96.649
[2022-07-04 14:03] VITALS: BP 155/76; PULSE 77; RESP 18; TEMP 36.4; O2SAT 97
--- NOTE | 2022-07-04 14:29 | PC.SOCIAL ---
IMM Update pg 2 of IMM updated and reviewed w/ patient. Copy provided and copy dated, initialed and placed in chart.
--- NOTE | 2022-07-04 14:57 | PC.NURSE ---
1230 IV removed and patient dressing with help of sister, tolerating activity well. 1404 patient discharged to home per private car, patient taken per wheel chair patient in stable condition
== END 2022-07-04 14:04 | disposition home health service (06) | DRG 522 ==
LOC: ER 13:29 → CSU 15:05 → MEDSURG 23:35
PROVIDERS: Orthopaedic Surgery; Admitting Provider Internal Medicine; Emergency Provider Nurse Practitioner Family; PCP Family Medicine; Visit Provider Internal Medicine
PROC: 0SRS03Z Replacement of Left Hip Joint, Femoral Surface with Ceramic Synthetic Substitute, Open Approach (ICD-10-PCS; CPT 27125; principal; 2022-07-02 11:40)
DX: S72.012A Unspecified intracapsular fracture of left femur, initial encounter for closed fracture (principal); E44.1 Mild protein-calorie malnutrition; Z68.1 Body mass index [BMI] 19.9 or less, adult; W00.9XXA Unspecified fall due to ice and snow, initial encounter; I15.8 Other secondary hypertension; G89.11 Acute pain due to trauma; E86.0 Dehydration; E83.42 Hypomagnesemia; E87.6 Hypokalemia; F32.A Depression, unspecified; Z87.440 Personal history of urinary (tract) infections
CPT/HCPCS: 36415; 51702; 73502; 73562; 73590; 80048; 80053; 81001; 82607; 83735; 84100; 85025; 85378; 85610; 85730; 96372; 97116; 97161; 97165; 97530; 99285; C1776; J0690; J1100; J1170; J1650; J1885; J2270; J2405; J2704; J2710; J3010; J3475; J3490; J7030

== ENCOUNTER → 2022-07-08 10:40 | Outpatient (BNVA) | payer MEDICARE, SELFPAY | PROVIDERS: PCP Family Medicine; Visit Provider Physician Assistant | DX: Z96.649 Presence of unspecified artificial hip joint (principal) | CPT/HCPCS: 99024 ==

== ENCOUNTER → 2022-07-15 13:38 | Outpatient (BNVA) | payer MEDICARE, SELFPAY | PROVIDERS: PCP Family Medicine; Visit Provider Physician Assistant | DX: Z96.649 Presence of unspecified artificial hip joint (principal) | CPT/HCPCS: 73502; 99024 ==

== ENCOUNTER 2022-08-02 11:53 | Outpatient (CLI) | payer MEDICARE, SELFPAY ==
[2022-08-02 12:34] LABS: Anion Gap 18.5 (5-19); Blood Urea Nitrogen 10 mg/dL (8-23); Calcium 8.7 mg/dL (8.5-10.5); Carbon Dioxide 22 mmol/L (22-29); Chloride 89 mmol/L (98-107); Glucose 161 mg/dL (65-115); Osmolality Calculated 263 mOsm/kg (285-295); Potassium 4.5 mmol/L (3.5-5.1); Sodium 125 mmol/L (136-145)
== END 2022-08-02 11:54 | disposition home or self-care (01) ==
PROVIDERS: PCP Family Medicine; Visit Provider Family Medicine
DX: S72.012D Unspecified intracapsular fracture of left femur, subsequent encounter for closed fracture with routine healing (principal); X58.XXXA Exposure to other specified factors, initial encounter
CPT/HCPCS: 80048

== ENCOUNTER → 2022-08-24 14:24 | Outpatient (BNVA) | payer MEDICARE, SELFPAY | PROVIDERS: PCP Family Medicine; Visit Provider Physician Assistant | DX: Z96.649 Presence of unspecified artificial hip joint (principal) | CPT/HCPCS: 73502; 99024 ==

== ENCOUNTER 2022-12-28 08:57 | Oncology outpatient (recurring) (ONCR) | payer MEDICARE, SELFPAY ==
[2022-12-28 09:08] VITALS: BP 152/72; PULSE 70; RESP 18; TEMP 36.2; O2SAT 97
[2022-12-28 09:14] VITALS: BP 135/65; PULSE 68; RESP 17; TEMP 36.6; O2SAT 98
[2022-12-28 09:15] VITALS: BP 135/65; PULSE 88; RESP 17; TEMP 37.1; O2SAT 98
[2022-12-28] MEDS: denosumab 60 mg SDV SUBCUT (09:21)
== END 2023-01-20 23:59 | disposition home or self-care (01) ==
PROVIDERS: PCP Family Medicine; Visit Provider Family Medicine
DX: M81.0 Age-related osteoporosis without current pathological fracture (principal); Z79.899 Other long term (current) drug therapy
CPT/HCPCS: 96372; J0897

== ENCOUNTER 2023-01-09 06:29 | Emergency (ER) | payer MEDICARE, SELFPAY ==
[2023-01-09 06:44] VITALS: BMI 16.2
[2023-01-09 06:49] VITALS: BP 160/60; PULSE 67; RESP 18; TEMP 36.7; O2SAT 97
--- NOTE | 2023-01-09 06:57 | CTR_ITS ---
PROCEDURE INFORMATION: Exam: CT Head Without Contrast Exam date and time: 01/09/2023 7:36 AM Age: 77 years old Clinical indication: Injury or trauma; Fall; Laceration; Without residual foreign body; Forehead; Additional info: With head injury TECHNIQUE: Imaging protocol: Computed tomography of the head without contrast. Radiation optimization: All CT scans at this facility use at least one of these dose optimization techniques: automated exposure control; mA and/or kV adjustment per patient size (includes targeted exams where dose is matched to clinical indication); or iterative reconstruction. REPORTING DATA: Count of CT and Cardiac NM exams in prior 12 months: This patient has received 0 known CTs and 0 known cardiac nuclear medicine studies in the 12 months prior to the current study. COMPARISON: CT head wo con* [id number] 07/05/2016 10:38 AM RADIATION DOSE METRICS: Total DLP (mGy-cm): 945.28 FINDINGS: Brain: Mild hypoattenuating foci are noted in the anterior lateral ventricular periventricular white matter bilaterally. No intracranial hemorrhage. No mass or acute cortical infarction identified. Ventricles: Prominence of the ventricular system and subarachnoid spaces is consistent with the patient's age of 77 years. Paranasal sinuses: Visualized sinuses are unremarkable. No fluid levels. Mastoid air cells: Visualized mastoid air cells are well aerated. Orbital cavities: Bilateral prior cataract surgery with lens replacements. Bones/joints: No acute abnormality. No acute fracture. Soft tissues: No foreign body. Mild right anterior frontal soft tissue swelling, with cutaneous defect consistent with laceration. Vasculature: Atherosclerotic calcifications are present involving the carotid artery siphons bilaterally. CT/CT head wo con* [id number] IMPRESSION: 1. Age appropriate supratentorial and infratentorial atrophy. 2. Mild chronic white matter microvascular ischemic disease. 3. No acute intracranial injury identified. 4. Right anterior frontal cutaneous laceration.
--- NOTE | 2023-01-09 06:58 | W.ED.WOUNDLC ---
HPI - Wound/Laceration General: Chief Complaint: Wound/Laceration Stated Complaint: right side of head injury Time Seen by Provider: 01/09/23 06:45 Source: patient and family Mode of arrival: ambulatory Limitations: no limitations History of Present Illness: This patient was brought to the emergency department by her family. She apparently got up out of bed this morning to get a drink of water and tripped over furniture and fell striking her right side of her head. She states that she did not have a syncope or passing out spell before she fell. She did not suffer a loss of consciousness as result of her head injury. She denies any other injury at this time. She does not take any blood thinning or antiplatelet medications. Family members with her states that he heard the thump when she fell and immediately went to her and she was awake and mentating normally. Place: home Patient tetanus UTD: No Context: fall Associated symptoms: Reports no associated symptoms; Denies chills, fever(s), nausea, syncope or vomiting Review of Systems Const: Denies: fever(s) or chills Eyes: Denies: change in vision or blurry vision ENMT: Denies: throat pain or odynophagia Card: Denies: chest pain, palpitations, syncope or pre-syncope Resp: Denies: dyspnea, productive cough or non-productive cough GI: Denies: nausea or vomiting Musc: Denies: neck pain, extremity pain or extremity swelling Skin/Breast: Denies: rash or pruritus Neuro: Denies: headache(s), numbness in extremities, weakness in extremities, dizziness, vertigo, confusion or Slurred speech present Bhanu/Lymph: Denies: easy bruising or easy bleeding [facility] ED PFSH: Medical History Closed subcapital fracture of left femur Dehydration Depression Displaced fracture of neck of left femur Hypertension Hypokalemia Hypomagnesemia Lower back pain Protein calorie malnutrition Surgical History No pertinent past surgical history Status post hip hemiarthroplasty Family History Denies family history of CAD (coronary artery disease) Physical Exam Narrative: EXAM NARRATIVE: Patient is alert and interactive. She appears to be in no acute distress. Const: COMMON NORMALS: no acute distress, patient oriented x3 and alert GENERAL APPEARANCE: cooperative NUTRITIONAL APPEARANCE: thin ORIENTATION/CONSCIOUSNESS: Yes oriented to person and Yes oriented to place HENMT: COMMON NORMALS: EAC's normal, Normal external nose present and moist oral mucous membranes FACE & SINUS: normal facial exam and face symmetric FACE & SINUS IMAGES: 1. Laceration NOSE: Normal external nose present EXTERNAL AUDITORY CANAL: EAC's normal Eye: COMMON NORMALS: Equal, round and reactive pupils present, EOMs intact bilaterally and conjunctivae normal CONJUNCTIVA: Yes conjunctivae normal PUPIL: Yes Equal, round and reactive pupils present Neck/C-Spine: CERVICAL SPINE: Yes cervical ROM normal, Yes normal cervical lordosis, No pain with cervical ROM, No Cervical spine tenderness, No step off deformity, No Paracervical muscle tenderness, No Paracervical spasm and No Trapezius muscle tenderness Chest: COMMONS NORMALS: normal inspection of the chest and normal palpation of entire chest wall Resp: COMMON NORMALS: normal respiratory effort, No retractions and clear to auscultation bilaterally EFFORT & INSPECTION: Yes able to speak in complete sentences AUSCULTATION: clear to auscultation bilaterally Cardio: COMMON NORMALS: regular rate, regular rhythm, No murmurs present (Cardio) and Peripheral pulses 2+ throughout RATE: regular rate RHYTHM: regular rhythm PERIPHERAL PULSES: Peripheral pulses 2+ throughout : COMMON NORMALS: Yes no CVA tenderness BLADDER/KIDNEY EXAM: Yes no CVA tenderness Back/Pelvis: COMMON NORMALS: no CVA tenderness, no thoracic nor lumbar tenderness and thoraco-lumbar ROM normal THORACIC SPINE/UPPER BACK: Yes thoracic ROM normal, No pain with ROM, No thoracic spinal tenderness and Yes kyphosis present LUMBAR SPINE/LOWER BACK: Yes normal to inspection, Yes lumbar ROM normal, No pain with ROM and No lumbar spinal tenderness PELVIS: Yes no pain with anterior-posterior compression and Yes no pain with lateral compression Extremity: COMMON NORMALS: normal to inspection, full ROM, capillary refill normal, no calf tenderness and no pedal edema Neuro: COMMON NORMALS: patient oriented x3, moves all extremities and no focal motor deficits SENSORIUM/ORIENTATION: Yes alert, Yes oriented to person and Yes oriented to place SPEECH: speech normal Psych: COMMON NORMALS: mental status grossly normal Skin: TRAUMA: laceration (Right upper forehead just distal to the hairline. Appears to be to the sub) Procedures Laceration Laceration 1: Site: scalp and face Side (If applicable): right Size (cm): 9 Description: irregular and clean Depth: simple, single layer Local Anesthetic: lidocaine 1% Pre-repair: wound explored and deep structures intact Skin layer closed with: other (Prolene) Size (cm): 5-0 Number of sutures: 13 Technique: simple, interrupted Course Reevaluation(s): Reevaluation #1: Laceration repaired in the usual fashion with simple interrupted sutures of 5-0 Prolene. Total number of 13 sutures. Wound was explored to the depth of the bloodless field no foreign bodies noted. No penetration past the subcutaneous layer. Patient tolerated procedure well. Time: 07:36 Reevaluation #2: Patient's imaging is reassuring. She remained stable and unchanged and suitable for discharge with return precautions Time: 08:10 Vital Signs: Vital signs: Vital Signs Temperature 98.0 F 01/09/23 06:49 Pulse Rate 67 01/09/23 06:49 Respiratory Rate 18 01/09/23 06:49 Blood Pressure 160/60 01/09/23 06:49 Pulse Oximetry 97 01/09/23 06:49 Oxygen Delivery Me thod Room Air 01/09/23 06:49 MDM - Wound/Laceration Medical Decision Making This 77-year-old lady was brought to the emergency department by family. She apparently suffered a ground-level trip and fall earlier this morning when she got out of bed to get a drink of water. Her history was unremarkable for any loss of consciousness associated with a fall or other injury suggested. She was not on any antiplatelet agents or anticoagulants. Her evaluation clinically revealed her to be alert with a GCS of 15 she did have a skin laceration that extended from the hairline proximal to to the upper third of her forehead on the right side. Concern was possible intracranial injury hemorrhage hematoma. Her clinical exam did not reveal any axial spine or extremity or other findings to suggest other injury. Laceration was repaired without difficulty and imaging was obtained of her head which was negative for any evidence of intracranial hemorrhage skull fracture etc. She remained clinically stable and suitable to be discharged with outpatient follow-up with return precautions. Lab Data I reviewed the patient's lab results. Radiology Impressions Head CT 01/09/23 06:57 IMPRESSION: 1. Age appropriate supratentorial and infratentorial atrophy. 2. Mild chronic white matter microvascular ischemic disease. 3. No acute intracranial injury identified. 4. Right anterior frontal cutaneous laceration. Discharge Plan Discharge Patient Disposition: Home Clinical Impression: Laceration of scalp, Fall from ground level Condition: Stable Prescriptions: No Action carisoprodol 350 mg tablet 350 mg PO Q6H fluoxetine 40 mg capsule 40 mg PO QAM atorvastatin 10 mg tablet 10 mg PO BEDTIME hydrocodone-acetaminophen 10-325 mg tablet 1 - 2 tab PO Q4H MDD 6 tabs PRN (Reason: Pain) hydromorphone 2 mg tablet 1 - 2 mg PO Q4H MDD 2 tabs PRN (Reason: Pain) brimonidine 0.2 % drops 1 drp ophthalmic (eye) BID bupropion HCl 300 mg tablet extended release 24 hr 300 mg PO BID Unisom SleepGels 50 mg Capsule 100 mg PO BEDTIME acetaminophen 650 mg Tablet Extended Release 650 mg PO BID PRN (Reason: Pain) gabapentin 100 mg capsule 100 mg PO Q6H Stool Softener-Laxative 8.6-50 mg Tablet 1 tab PO DAILY Qty: 20 0RF amlodipine 10 mg Tablet 10 mg PO DAILY Qty: 30 2RF lisinopril 10 mg Tablet 10 mg PO DAILY Qty: 30 0RF oxycodone 5 mg tablet 5 mg PO DAILY PRN (Reason: pain) Qty: 7 0RF aspirin 325 mg tablet,delayed release (DR/EC) 325 mg PO DAILY Qty: 30 0RF Discharge Orders: Discharge ED (Routine); Ordered 01/09/23 Ordered By: Juarez Cain Referrals: Abdiel Melendez MD [Primary Care Provider] - Discharge Diet: Usual diet Discharge Activity: Increase activity as tolerated Patient Instructions: Concussion/Head Injury - Adult, Head Laceration (ED), Opioid Safety, Pain Management Activity Restrictions/Additional Instructions: If you develop any symptoms such as persistent or worsening headache, bleeding from your skin laceration, vomiting dizziness or other concerns return to the emergency department immediately. Your sutures should be removed in approximately 5 to 7 days. Coding Level of Care Code ED Consulting It Architect for Pablo Aviles
[2023-01-09] MEDS: bacitracin ointment Pkt 1 EACH TOPICAL (08:00)
[2023-01-09] MEDS: tetanus-dipt-pertussis 0.5 mL SDV IM (08:00)
[2023-01-09 08:27] VITALS: PULSE 64; RESP 14; O2SAT 97
== END 2023-01-09 08:29 | disposition home or self-care (01) ==
PROVIDERS: Emergency Provider Emergency Medicine; PCP Family Medicine
DX: S01.81XA Laceration without foreign body of other part of head, initial encounter (principal); Z79.82 Long term (current) use of aspirin; I10 Essential (primary) hypertension; W01.10XA Fall on same level from slipping, tripping and stumbling with subsequent striking against unspecified object, initial encounter; Z23 Encounter for immunization
CPT/HCPCS: 12015; 70450; 90471; 90715; 99284

== ENCOUNTER 2023-04-29 14:59 | Emergency (ER) | payer MEDICARE, SELFPAY ==
[2023-04-29 15:04] VITALS: BP 157/79; PULSE 78; RESP 16; TEMP 36.5; O2SAT 98; BMI 17.6
--- NOTE | 2023-04-29 15:28 | CTR_ITS ---
PROCEDURE INFORMATION: Exam: CT Abdomen And Pelvis With Contrast Exam date and time: 04/29/2023 5:13 PM Age: 77 years old Clinical indication: Abdominal pain; Generalized; Prior surgery; Surgery date: 6+ months; Surgery type: Hyster; Additional info: Abd pain TECHNIQUE: Imaging protocol: Computed tomography of the abdomen and pelvis with contrast. Radiation optimization: All CT scans at this facility use at least one of these dose optimization techniques: automated exposure control; mA and/or kV adjustment per patient size (includes targeted exams where dose is matched to clinical indication); or iterative reconstruction. Contrast material: OMNI 350; Contrast volume: 80 ml; Contrast route: INTRAVENOUS (IV); REPORTING DATA: Count of CT and Cardiac NM exams in prior 12 months: This patient has received [address] and 0 known cardiac nuclear medicine studies in the 12 months prior to the current study. COMPARISON: CR XR hip LT 2-3V wo/w pel* [id number] 08/24/2022 2:26 PM RADIATION DOSE METRICS: Total DLP (mGy-cm): 293.89 FINDINGS: Lungs: There is some subsegmental atelectasis or scarring at the lung bases. Liver: There is a small hypodensity in the left lobe of the liver most likely small cysts but too small to definitively characterize by CT scanning. Gallbladder and bile ducts: The gallbladder is normal. Common bile duct measures 8 mm which is not unusual for the patient's age. Pancreas: The pancreas is normal. Spleen: The spleen is normal. Adrenal glands: The adrenal glands are normal. Kidneys and ureters: The kidneys are normal. There is no evidence of hydronephrosis. There is no evidence of renal or ureteral calcifications. Stomach and bowel: There is no evidence of colitis/diverticulitis. There is no evidence of intestinal obstruction. Appendix: Not identified Intraperitoneal space: There is no evidence of free intraperitoneal fluid. Vasculature: A retroaortic left renal vein is incidentally noted. The aorta demonstrates moderate atherosclerotic calcification. Lymph nodes: There is an enlarged left periaortic lymph node measuring 10 x 11 mm but otherwise no adenopathy. Urinary bladder: Unremarkable as visualized. Reproductive: There has been a hysterectomy. Bones/joints: There is left hip replacement. The prosthetic components cause some streak artifact that obscures some portions of the pelvis. The lumbar spine demonstrates moderate degenerative changes at multiple levels. There is osteoporotic compression and wedging of L1 with 50% loss of height of the anterior vertebral body. This is a osteoporotic compression fracture of uncertain age but likely chronic. There is Schmorl's node deformity involving the inferior endplate of L2, also of uncertain age but likely chronic in there is mild osteoporotic compression of the superior endplate of L3 of unknown age but likely chronic. There is severe narrowing of the L4-L5 and L5-S1 disc spaces. Soft tissues: Unremarkable. CT/CT abdomen pelvis w con* [id number] IMPRESSION: 1. No acute findings. 2. Degenerative changes and osteoporotic compression deformities of the lumbar spine as described
--- NOTE | 2023-04-29 15:30 | ED_ITS ---
HPI - Abdominal Pain 2 General: Chief Complaint: Abdominal Pain Stated Complaint: abd pain, fever Time Seen by Provider: 04/29/23 15:26 Source: patient Mode of arrival: ambulatory Limitations: no limitations History of Present Illness: 77-year-old female states she has been h aving diffuse abdominal pain over the last 2 days. She states she has had fevers while she has history of diverticulitis and is felt similar. She denies any vomiting had some slight diarrhea she denies any worsening proving factors. Associated Symptoms: Denies chills, diarrhea, dysuria, fever(s), nausea and vomiting Review of Systems 2 Const: Denies: fever(s), chills, body aches or change in appetite ENMT: Denies: throat pain or dental pain Card: Denies: chest pain Resp: Denies: dyspnea GI: Reports: abdominal pain; Denies: nausea, vomiting or diarrhea : Denies: dysuria Musc: Denies: neck pain or back pain Skin/Breast: Denies: rash Neuro: Denies: headache(s) PFSH ED 2 PFSH: Medical History Closed subcapital fracture of left femur Dehydration Depression Displaced fracture of neck of left femur Hypertension Hypokalemia Hypomagnesemia Lower back pain Protein calorie malnutrition Surgical History Status post hip hemiarthroplasty No pertinent past surgical history Family History Denies family history of CAD (coronary artery disease) Physical Exam 2 Const: COMMON NORMALS: no acute distress, patient oriented x3 and healthy appearing HENMT: COMMON NORMALS: normocephalic and atraumatic HEAD & SCALP: n ormocephalic and atraumatic Neck/C-Spine: COMMON NORMALS: full ROM and supple Chest: COMMONS NORMALS: normal inspection of the chest Resp: COMMON NORMALS: normal respiratory effort, No retractions, No use of accessory muscles and clear to auscultation bilaterally AUSCULTATION: clear to auscultation bilaterally Cardio: COMMON NORMALS: regular rate, regular rhythm and No murmurs present (Cardio) RATE: regular rate RHYTHM: regular rhythm GI: COMMON NORMALS: Normal to inspection, nondistended, normoactive bowel sounds present, Soft to palpation and no masses PALPATION: Yes Soft to palpation OTHER: diffuse tenderness Extremity: COMMON NORMALS: normal to inspection and full ROM Neuro: COMMON NORMALS: patient oriented x3, moves all extremities and no focal motor deficits Psych: COMMON NORMALS: mental status grossly normal, Normal thought process present and cooperative THOUGHT PROCESS: Normal thought process present Skin: COMMON NORMALS: no rashes or lesions noted and no wounds GENERAL SKIN EXAM: no rashes or lesions noted Course 2 Vital Signs: Vital signs: Vital Signs Temperature 97.7 F 04/29/23 15:04 Pulse Rate 78 04/29/23 15:04 Respiratory Rate 78 H 04/29/23 16:48 Blood Pressure 163/86 04/29/23 16:48 Pulse Oximetry 99 04/29/23 16:48 Oxygen Delivery Me thod Room Air 04/29/23 15:04 MDM - Abdominal Pain Medical Decision Making Patient presents with abdominal pain CT showed no acute findings we will start her on Bentyl along with nausea medicine she is to follow-up with her PCP and return if worsening she understands agrees to plan. Medical Records I reviewed the patient's medical records. Lab Data I reviewed the patient's lab results. 04/29/23 16:07 04/29/23 16:07 Labs/Radiology: Radiology Impressions Abdomen/Pelvis CT 04/29/23 15:28 IMPRESSION: 1. No acute findings. 2. Degenerative changes and osteoporotic compression deformities of the lumbar spine as described Laboratory Results WBC 7.01 10^3/uL (3.29-11.43) 04/29/23 16:07 Corrected WBC Cancelled 04/29/23 15:30 RBC 3.34 10^6/uL (3.85-5.65) L 04/29/23 16:07 Hgb 11.30 g/dL (11.27-16.99) 04/29/23 16:07 Hct 32.5 % (36-47) L 04/29/23 16:07 MCV 97.3 fl (85-98) 04/29/23 16:07 MCH 33.8 pg (27-33) H 04/29/23 16:07 MCHC 34.8 g/dL (30-55) 04/29/23 16:07 RDW 12.3 % (12.1-15.1) 04/29/23 16:07 Plt Count 303 10^3/cmm (157-399) 04/29/23 16:07 MPV 9.4 fL (7.4-10.4) 04/29/23 16:07 Gran % Cancelled 04/29/23 15:30 Neut % (Auto) 62.8 % 04/29/23 16:07 Lymph % (Auto) 15.4 % 04/29/23 16:07 [place] % (Auto) 19.5 % 04/29/23 16:07 Eos % (Auto) 1.0 % 04/29/23 16:07 Baso % (Auto) 0.6 % 04/29/23 16:07 Neut # (Auto) 4.40 10^3/uL (1.8-7.7) 04/29/23 16:07 Lymph # (Auto) 1.1 10^3/uL (0.8-4.8) 04/29/23 16:07 [place] # (Auto) 1.4 10^3/uL (0.2-0.9) H 04/29/23 16:07 Eos # (Auto) 0.1 10^3/uL (0.0-0.8) 04/29/23 16:07 Baso # (Auto) 0.0 10^3/uL (0.0-0.1) 04/29/23 16:07 Absolute Gran (auto) Cancelled 04/29/23 15:30 Nucleated RBC % (auto) 0 % 04/29/23 16:07 Nucleated RBCs # 0.0 /100WBC 04/29/23 16:07 Sodium 132 mmol/L (136-145) L 04/29/23 16:07 Potassium 4.2 mmol/L (3.5-5.1) 04/29/23 16:07 Chloride 98 mmol/L (98-107) 04/29/23 16:07 Carbon Dioxide 21 mmol/L (22-29) L 04/29/23 16:07 Anion Gap 17.2 (5-19) 04/29/23 16:07 BUN 11 mg/dL (8-23) 04/29/23 16:07 Creatinine 0.6 mg/dL (0.5-0.9) 04/29/23 16:07 GFR Calculation Not Reportable 04/29/23 16:07 Glucose 89 mg/dL (65-115) 04/29/23 16:07 Calculated Osmolality 273 mOsm/kg (285-295) L 04/29/23 16:07 Calcium 8.3 mg/dL (8.5-10.5) L 04/29/23 16:07 Total Bilirubin 0.4 mg/dL (0.15-1.2) 04/29/23 16:07 AST 63 U/L (0-32) H 04/29/23 16:07 ALT 50 U/L (0-33) H 04/29/23 16:07 Alkaline Phosphatase 110 U/L (35-105) H 04/29/23 16:07 Total Protein 6.2 g/dL (6.6-8.7) L 04/29/23 16:07 Albumin 3.5 g/dL (3.5-5.2) 04/29/23 16:07 Globulin 2.7 g/dL (1.3-4.6) 04/29/23 16:07 Lipase 68 U/L (13-60) H 04/29/23 16:07 All radiology interpretation(s) finalized by discharge Discharge Plan Discharge Patient Disposition: Home Clinical Impression: Abdominal pain Qualifiers: Abdominal location: generalized Qualified Code(s): R10.84 - Generalized abdominal pain Condition: Stable Prescriptions: New ondansetron 4 mg tablet,disintegrating 4 mg PO Q6H PRN (Reason: nausea and vomiting) Qty: 14 0RF dicyclomine 20 mg tablet 20 mg PO BID PRN (Reason: abdominal pain) Qty: 14 0RF No Action carisoprodol 350 mg tablet 350 mg PO Q6H fluoxetine 40 mg capsule 40 mg PO QAM atorvastatin 10 mg tablet 10 mg PO BEDTIME hydrocodone-acetaminophen 10-325 mg tablet See Rx Instructions .ROUTE .COMPLEX Rx Instructions: take one tab po q6h and takes 2 tabs at bedtime (max 6 tabs per day) brimonidine 0.2 % drops 1 drp ophthalmic (eye) BID bupropion HCl 300 mg tablet extended release 24 hr 300 mg PO QAM diphenhydramine HCl [[employer] SleepGels] 50 mg Capsule 100 mg PO BEDTIME acetaminophen 650 mg Tablet Extended Release 650 mg PO BID PRN (Reason: Pain) gabapentin 100 mg capsule 100 mg PO Q6H aspirin 325 mg tablet,delayed release (DR/EC) 325 mg PO QAM lisinopril 10 mg tablet 10 mg PO QAM pantoprazole 40 mg tablet,delayed release (DR/EC) 40 mg PO DAILY Discharge Orders: Discharge ED (Routine); Ordered 04/29/23 Ordered By: Sarah Bagley Referrals: Abdiel Melendez MD [Primary Care Provider] - 1-3 days Discharge Diet: Advance as tolerated Discharge Activity: Resume usual activity Patient Instructions: Abdominal Pain (ED) Coding Level of Care Code ED Management Associate for Pablo Aviles
[2023-04-29 16:38] LABS: Basophils % 0.6 %; Eosinophils # 0.1 10^3/uL (0.0-0.8); Hematocrit 32.5 % (36-47); Lymphocytes # 1.1 10^3/uL (0.8-4.8); Lymphocytes % 15.4 %; Mean Corpuscular HGB Conc 34.8 g/dL (30-55); Mean Corpuscular Hemoglobin 33.8 pg (27-33); Mean Corpuscular Volume 97.3 fl (85-98); Mean Platelet Volume 9.4 fL (7.4-10.4); Monocytes # 1.4 10^3/uL (0.2-0.9); Monocytes % 19.5 %; Neutrophils % 62.8 %; Nucleated Red Blood Cells % 0 %; Platelet Count 303 10^3/cmm (157-399); Red Blood Count 3.34 10^6/uL (3.85-5.65); Red Cell Distribution Width 12.3 % (12.1-15.1); White Blood Count 7.01 10^3/uL (3.29-11.43)
[2023-04-29 16:42] VITALS: RESP 16
[2023-04-29] MEDS: HYDROmorphone 1 mg/mL INJ 1 mL 0.5 MG IVP (16:42)
[2023-04-29] MEDS: sodium chloride 0.9% 1,000 ML 999 ML IV (16:42)
[2023-04-29] MEDS: ondansetron 2 mg/ML SDV 2 mL 4 MG IVP (16:42)
[2023-04-29 16:48] VITALS: BP 163/86; RESP 78; O2SAT 99
[2023-04-29 16:54] LABS: Alanine Aminotransferase 50 U/L (0-33); Albumin Level 3.5 g/dL (3.5-5.2); Alkaline Phosphatase 110 U/L (35-105); Anion Gap 17.2 (5-19); Aspartate Amino Transferase 63 U/L (0-32); Blood Urea Nitrogen 11 mg/dL (8-23); Calcium 8.3 mg/dL (8.5-10.5); Carbon Dioxide 21 mmol/L (22-29); Chloride 98 mmol/L (98-107); Globulin 2.7 g/dL (1.3-4.6); Glucose 89 mg/dL (65-115); Lipase 68 U/L (13-60); Osmolality Calculated 273 mOsm/kg (285-295); Potassium 4.2 mmol/L (3.5-5.1); Sodium 132 mmol/L (136-145); Total Bilirubin 0.4 mg/dL (0.15-1.2); Total Protein 6.2 g/dL (6.6-8.7)
[2023-04-29] MEDS: iohexol 350 mg/mL 500 mL Btl (per mL) IV (17:21)
== END 2023-04-29 18:38 | disposition home or self-care (01) ==
PROVIDERS: Emergency Provider Emergency Medicine; PCP Family Medicine
DX: R10.84 Generalized abdominal pain (principal)
CPT/HCPCS: 36415; 74177; 80053; 83690; 85025; 96374; 96375; 99285; J1170; J2405; J7030; Q9967

== ENCOUNTER 2023-07-12 13:55 | Outpatient (CLI) | payer MEDICARE, SELFPAY ==
--- NOTE | 2023-07-12 13:59 | XR_ITS ---
WS: [email or web address] SCREENING DEXA SCAN [employer] CLINICAL INFORMATION: OSTEOPOROSIS COMPARISON: 2018 FINDINGS: The L1-L4 bone mineral density measures 0.772 g/cm2. This corresponds to a T score score of -3.4 and Z score of -0.9. Left forearm bone mineral density measures 0.498. This corresponds to a T score of -4.3 and Z score o f -1.9. Right femoral neck bone mineral density measures 0.486. This corresponds to a T score -4.1 of and Z s core of -1.8. IMPRESSION: Osteoporosis lumbar spine Osteoporosis RIGHT femoral neck. Osteoporosis LEFT forearm. Patient's FRAX calculated 10 year probability for major osteoporotic fracture is 46.1% and osteoporot ic hip fracture is 33.8%. Bone mineral density lumbar spine increased 5.5% Bone mineral density RIGHT femur decreased -12.1%
== END 2023-07-12 13:56 | disposition home or self-care (01) ==
LOC: RAD 13:55
PROVIDERS: PCP Family Medicine; Visit Provider Family Medicine
DX: Z13.820 Encounter for screening for osteoporosis (principal); M81.0 Age-related osteoporosis without current pathological fracture
CPT/HCPCS: 77080